=== PATIENT | male | born 1950 | race Caucasian/White ===

== ENCOUNTER 2018-08-05 07:17 | Outpatient (CLI) | payer BC, MEDICARE ==
--- NOTE | 2018-08-05 09:32 | CT ---
CT CHEST WITH IV CONTRAST CT ABDOMEN AND PELVIS WITH IV AND ORAL CONTRAST: Date: 08/05/18 HISTORY: Melanoma. Restaging. Abdominal wall mass. FINDINGS: At the posterolateral aspect of the left lower lobe, a 0.4 cm noncalcified subpleural nodule is now p resent, not evident on previous exams. No pleural fluid or pneumothorax. Nonenlarged, nonspecific lym ph nodes scattered about the mediastinum, measuring up to 1.3 cm. Prominent calcification within the coronary arteries. Gallbladder is surgically absent. Large and hyperdense renal cysts are stable. Calcifications within nondilated calices of each kidney are present, measuring up to 1.4 cm on the left, and 1.3 cm on the right. Urinary bladder is decompressed. Dystrophic calcification of the prostate gland. Diverticula arise fr om the colon without adjacent inflammation. At the left inguinal region, a superficial noncalcified subcutaneous mass measured 2.6 cm length x 2. 2 cm depth x 2.1 cm width. It shows peripheral enhancement with central irregular low density and sub tle surrounding fat stranding. There was subtle stranding in the fat at this location on the 2014 PET study without a mass evident. IMPRESSION: 1. New, complex, inflamed appearing mass at the left groin, measuring up to 2.6 cm. This may be in a n area of prior surgery based on the prior studies. While it could be a neoplastic process, the centr al low density and surrounding fat stranding have the appearance of inflammation. Clinical correlatio n regarding an inflammatory versus neoplastic process at the left groin is required. Imaging guidance for biopsy could be used if clinically indicated. 2. New 3 mm subpleural nodule in the lateral aspect of the left lower lobe. 3. Diverticulosis. No evidence of diverticulitis. 4. Nonobstructing large bilateral renal calculi. 5. Bilateral renal cysts are stable. 6. Atherosclerosis. POS: [facility]
[2018-08-05] MEDS ORDERED: Iopamidol 370 76% 100 ML VIAL ONE (10:34)
== END 2018-08-05 07:18 | disposition home or self-care (01) ==
LOC: CT 07:17
PROVIDERS: ATTEND Internal Medicine Hematology & Oncology
DX: C43.59 Malignant melanoma of other part of trunk (principal); R19.04 Left lower quadrant abdominal swelling, mass and lump; R91.1 Solitary pulmonary nodule; K57.90 Diverticulosis of intestine, part unspecified, without perforation or abscess without bleeding; N20.0 Calculus of kidney; N28.1 Cyst of kidney, acquired; I70.90 Unspecified atherosclerosis
CPT/HCPCS: 71260; 74177

== ENCOUNTER 2018-08-07 12:03 | Outpatient (CLI) | payer BC, MEDICARE ==
--- NOTE | 2018-08-07 16:23 | PET ---
CT ATTENUATION CORRECTION: 08/07/18 HISTORY: Malignant melanoma. COMPARISON: 01/08/15. CORRELATION: Chest, abdomen and pelvic CT 08/05/18. TECHNIQUE: PET scan with CT attenuation correction was performed from the base of the brain to the lower extremi ties following the intravenous administration of 10.9 millicuries of [id number]. FINDINGS: HEAD AND NECK: No abnormal FDG localization. CHEST: Normal abnormal FDG localization. The 3 mm nodular noted on recent CT is not hypermetabolic but is be low the imaging threshold criteria due to size. ABDOMEN AND PELVIS: No abnormal FDG localization. In the left inguinal region, there is a hypermetabolic focus correspond ing to recent CT finding with a maximum SUV of 8.5. OSSEOUS STRUCTURES: No abnormal FDG localization. LOWER EXTREMITIES: No abnormal FDG localization. IMPRESSION: Solitary hypermetabolic focus in the left inguinal region. POS: [facility]
== END 2018-08-07 12:04 | disposition home or self-care (01) ==
LOC: PET 12:03
PROVIDERS: ATTEND Internal Medicine Hematology & Oncology
DX: C43.9 Malignant melanoma of skin, unspecified (principal)
CPT/HCPCS: 78816; A9552

== ENCOUNTER 2018-08-13 10:16 | Outpatient (CLI) | payer BC, MEDICARE ==
[2018-08-13 11:26] LABS: #Basophils 0.1 thou/uL (0.0-0.2); #Eosinphils 0.5 thou/uL (0.0-0.7); #Lymphocytes 3.7 thou/uL (1.20-3.40); #Monocytes 0.9 thou/uL (0.11-0.59); #Neutrophils 5.8 thou/uL (1.40-6.50); %Basophils 1.1 % (0.0-1.0); %Eosinophils 4.2 % (0.0-10.0); %Lymphocytes 33.6 % (21.0-51.0); %Monocytes 7.9 % (0.0-10.0); %Neutrophils 53.2 % (42.0-75.0); Hemoglobin 15.1 g/dL (14.0-18.0); Mean Corpuscular HGB CONC 34.1 g/dL (32.0-36.0); Mean Corpuscular Hemoglobin 32.5 pg (27.0-31.0); Mean Corpuscular Volume 95.4 fL (78.0-98.0); Platelet Count 180 thou/uL (130-400); RBC Distribution Width 12.6 % (11.5-14.5); Red Blood Cell (RBC) Count 4.63 mill/uL (4.70-6.10); White Blood Cell (WBC) Count 10.9 thou/uL (4.8-10.8)
== END 2018-08-13 10:17 | disposition home or self-care (01) ==
LOC: LABBT 10:16
PROVIDERS: ATTEND Surgery
DX: Z01.818 Encounter for other preprocedural examination (principal); C43.59 Malignant melanoma of other part of trunk
CPT/HCPCS: 85025; 93005; 93010

== ENCOUNTER 2018-08-15 09:08 | Day surgery (SDC) | payer BC, MEDICARE ==
[2018-08-13 10:46] VITALS: BMI 27.2
[2018-08-15] MEDS ORDERED: CEFAZOLIN 2 GM/50 ML BAG ONE (10:27)
[2018-08-15] MEDS ORDERED: Lidocaine 2% PF 5 ML VIAL ONE (10:45)
[2018-08-15] MEDS ORDERED: Bupivacaine HCl 0.5%/Epinephrine 1:200,000/PF 30 ml Vial ONE (10:45)
[2018-08-15] MEDS ORDERED: Fentanyl 250 MCG/5 ML VIAL ONE (10:52)
[2018-08-15] MEDS ORDERED: Ondansetron PF 4 MG/2 ML Vial ONE (12:08)
[2018-08-15] MEDS ORDERED: Glycopyrrolate 0.2 MG/ML 5 ML SYRINGE ONE (12:08)
[2018-08-15] MEDS ORDERED: ePHEDrine/0.9% NaCl/PF SYRINGE 50 mg/10 ml ONE (12:08)
[2018-08-15] MEDS ORDERED: PROPOFOL 200 MG/20 ML VIAL ONE (12:08)
[2018-08-15] MEDS ORDERED: Lidocaine 1% PF 5 ML VIAL ONE (12:08)
[2018-08-15] MEDS ORDERED: Meperidine HCl/PF 25 MG/ML VIAL ONE (12:16)
--- NOTE | 2018-08-15 14:10 | OP ---
DATE OF PROCEDURE: 08/15/2018 PREOPERATIVE DIAGNOSIS: Metastatic melanoma, left groin. PROCEDURE PERFORMED: Excision of metastatic melanoma. INDICATIONS: This is a 68-year-old male, who about three years ago had a melanoma removed from his back. He had a sentinel node biopsy at that time was negative. He developed a nodule in his left groin that was positive on PET scan. FINDINGS: 3 x 3 cm nodule left groin, 5 x 5 cm area of tissue was removed. DESCRIPTION OF PROCEDURE: After informed consent was obtained, the patient was taken to the operating room and given general mask anesthesia, placed in the supine position. His groin was prepped and draped in usual fashion. Local anesthesia infiltrated subcutaneously and deep, and a transverse incision was performed in the skin. Subcu divided sharply, and the mass was excised with normal tissue circumferentially. It was marked with a black suture anterior, a blue suture superior, and a white suture lateral, sent to pathology for further analysis. Hemostasis achieved with electrocautery. A drain was placed and brought out through a separate stab wound. Then, the subcu was reapproximated with interrupted 3-0 Vicryl and the skin closed with a running subcuticular 4-0 Rapide. Dermabond applied. The patient tolerated the procedure well, transferred to Recovery in good condition. Sponge and needle count verified and correct x2. Job ID: [id number]
--- NOTE | 2018-08-20 05:02 | PQF ---
[facility] POST DISCHARGE CLINICAL DOCUMENTATION IMPROVEMENT CLARIFICATION FORM l Todays Date: 08/20/18 l Patients Name MILI WETZEL l l Admit Date 08/15/18 l Disch Date 08/15/18 Office Clin Asst Name Princess Jayla Graham Email: @[email or web address] Cell: [phone] To be completed by Office Clin Asst: Present Clinical Indicators - Signs / Symptoms Results and Location in Medical Record [ ] Documentation of: [ ] [ ] Documentation of: [ ] [ ] Documentation of: [ ] [ ] Documentation of: [ ] [ ] Risks [ ] [ ] [ ] Treatment [ ] EXCISION OF METASTATIC MELANOMA Physician query for margin of excised lesion [ ] [ ] To be completed by Physician: HUSSEIN HARLEY The documentation in this patients record requires clarification to ensure coding compliance and accuracy. Check the appropriate box and include in your discharge summary. [ ] [ ] [ ] [ ] Please check this box if this does not apply to this patient [ ] Unable to determine [ ] Other diagnosis: Review the following information and exercise your independent professional judgment in responding to the clarification. Based upon the clinical findings, risk factors, and treatment, please clarify if you are treating one of the above probable or suspected diagnoses. Physician Signature: Date Time MTDD
== END 2018-08-15 14:13 | disposition home or self-care (01) ==
LOC: SDC 09:08
PROVIDERS: ATTEND Surgery
PROC: 0HB9XZZ Excision of Perineum Skin, External Approach (ICD-10-PCS; principal; 2018-08-15)
PROC: 0HQ9XZZ Repair Perineum Skin, External Approach (ICD-10-PCS; principal; 2018-08-15)
DX: C43.59 Malignant melanoma of other part of trunk (principal); I10 Essential (primary) hypertension; M10.9 Gout, unspecified; Z87.442 Personal history of urinary calculi; Z87.891 Personal history of nicotine dependence; Z91.09 Other allergy status, other than to drugs and biological substances; Z79.82 Long term (current) use of aspirin; Z79.899 Other long term (current) drug therapy; Z98.890 Other specified postprocedural states
CPT/HCPCS: 88307; 88341; 88342; 88360; J0670; J2001; J2175; J2405; J2704; J3010

== ENCOUNTER 2018-08-26 14:44 | Outpatient (CLI) | payer BC, MEDICARE ==
[~2018-08-26 14:44] MED LIST: ISOVUE-370 76%-LOCM 1 ML ONE
--- NOTE | 2018-08-26 17:06 | CT ---
PRE AND POST CONTRAST ENHANCED CT IMAGES OF THE BRAIN: History: Melanoma. Comparison: 12-28-14 FINDINGS: Pre and post contrast enhanced CT images of the brain demonstrate no evidence of calvarial masses or lesions. No abnormal areas of intracranial enhancement is seen. No evidence of intracranial hemorrhag es, strokes or other intracranial abnormalities seen. IMPRESSION: Unremarkable pre and post contrast enhanced CT images of the brain. POS: [facility]
== END 2018-08-26 14:45 | disposition home or self-care (01) ==
LOC: BICCT 14:44
PROVIDERS: ATTEND Internal Medicine Hematology & Oncology
DX: C43.59 Malignant melanoma of other part of trunk (principal)
CPT/HCPCS: 70470

== ENCOUNTER 2018-10-30 08:13 | Outpatient (CLI) | payer BC, MEDICARE ==
--- NOTE | 2018-10-30 10:16 | PET ---
Exam: PET CT skull apex to the feet COMPARISON: 08/07/2018 HISTORY: History of left flank melanoma. TECHNIQUE: A PET/CT was performed from the apex of the skull through the feet after administration of 12.3 millicuries of F-18 FDG. Evaluation was performed on a [employer] workstation. FINDINGS: INTRACRANIAL: No areas of increased or decreased metabolic activity. NECK: There is streak artifact from dental amalgam adjacent to the right maxillary teeth. There is a focal area of hypermetabolic activity with a maximum SUV value of 12 adjacent to the dental amalgam. This persists on the nonattenuation corrected images and likely represents periodontal disease rather than metastatic disease. CHEST: No areas of hypermetabolic activity ABDOMEN/PELVIS: No areas of hypermetabolic activity SKELETON: No areas of hypermetabolic activity LOWER EXTREMITIES: No areas of hypermetabolic activity. The patient has a left knee prosthesis. CT images used for attenuation correction show no significant abnormality. IMPRESSION: No evidence of recurrent disease
== END 2018-10-30 08:14 | disposition home or self-care (01) ==
LOC: PET 08:13
PROVIDERS: ATTEND Internal Medicine Hematology & Oncology
DX: C43.9 Malignant melanoma of skin, unspecified (principal)
CPT/HCPCS: 78816; A9552

== ENCOUNTER 2019-02-04 07:50 | Outpatient (CLI) | payer BC, MEDICARE ==
--- NOTE | 2019-02-04 09:13 | CT ---
CT OF THE CHEST AND ABDOMEN WITH IV CONTRAST INDICATION: Melanoma COMPARISON: CT of the chest, abdomen and pelvis dated August 05, 2018 and a PET/CT dated January 08 FINDINGS: CHEST: Lungs:4 mm pulmonary nodule in the left lower lobe on image 39 series 3 is stable. The 4 mm subpleura l pulmonary nodule within the superior left lower lobe on image 16 of series 3 is stable. No new pulmonary nodule is identified. Heart and great vessels:Prominent coronary artery and thoracic aortic calcifications are stable there is a stable aortic valvular prosthesis Pleural space: No pneumothorax or effusion. Additional findings: The previously seen enlarged pretracheal lymph node is smaller now measuring 8. 6 mm where previously measured 1.3 cm. Subcarinal lymph node is also smaller now measuring 1.3 cm were previously measured 1.5 cm. The small paratracheal lymph nodes seen on the right are stable. Pos t-CABG change. Similar. ABDOMEN: Liver:Normal appearing. Spleen:Normal appearing. Pancreas:Normal appearing. Adrenal Glands:Normal appearing. Kidneys:Stable bilateral renal cysts and bilateral nephrolithiasis. One of the largest stones within the superior pole of the left kidney measures 1.6 cm. The largest on the right measures 1.2 cm. Aorta: Moderate vascular Additional findings: There is a retroaortic left renal vein. Bowel:The visualized small and large bowel appear within normal limits. Osseous structures: No acute osseous abnormality. There is scattered degenerative and osteoarthritic changes. IMPRESSION: 1. Stable left lower lobe 4 mm pulmonary nodules. No new pulmonary nodules identified. 2. Decrease in size of the enlarged mediastinal lymph nodes. 3. No evidence of metastatic disease within the abdomen. 4. Stable bilateral renal cysts and bilateral nephrolithiasis
[2019-02-04] MEDS ORDERED: ISOVUE-370 76%-LOCM 1 ML ONE (13:40)
== END 2019-02-04 07:51 | disposition home or self-care (01) ==
LOC: BICCT 07:50
PROVIDERS: ATTEND Internal Medicine Hematology & Oncology
DX: C43.59 Malignant melanoma of other part of trunk (principal); R91.8 Other nonspecific abnormal finding of lung field; R59.0 Localized enlarged lymph nodes; N28.1 Cyst of kidney, acquired; N20.0 Calculus of kidney
CPT/HCPCS: 36415; 71260; 74160; 80053; 85027; Q9966

== ENCOUNTER 2019-05-13 14:29 | Outpatient (CLI) | payer BC, MEDICARE ==
--- NOTE | 2019-05-13 15:28 | ULT ---
BILATERAL RENAL ULTRASOUND: HISTORY: Renal calculi. COMPARISON: None. FINDINGS: Right kidney: Normal cortical echotexture. Moderate hydronephrosis. A 0.7 cm echogenic focus in the l ower pole renal pelvis. A 3.3 x 3.0 x 3.3 cm anechoic focus compatible with a exophytic upper pole cyst. Right kidney measurements: A 10.2 x 7.7 x 6.6 cm. Left kidney: Normal cortical echotexture. No hydronephrosis exophytic 6.8 x 4.7 x 4.1 cm cyst. Adjace nt cortical calcification is identified. Small exophytic hypoechoic focus in the mid portion left kidney is incompletely evaluated. Left kidney measurements 12.6 x 6.2 x 5.1 cm. Urinary bladder: Normal mucosa. Bilateral ureteral jets are identified. Small left ureterocele is not ed. IMPRESSION: 1. Moderate right-sided hydronephrosis. 2. Bilateral nonobstructing intrarenal calculi. Transcribed Date/Time: 05/13/2019 3:39 PM
== END 2019-05-13 14:30 | disposition home or self-care (01) ==
LOC: BICULT 14:29
PROVIDERS: ATTEND Urology
DX: N20.0 Calculus of kidney (principal); N13.30 Unspecified hydronephrosis
CPT/HCPCS: 76770

== ENCOUNTER 2019-05-28 11:20 | Outpatient (CLI) | payer BC, MEDICARE ==
--- NOTE | 2019-05-28 13:15 | MRI ---
MRI thoracic spine with and without contrast: DATE: 05/28/2019 HISTORY: 68-year-old male with "malignant melanoma of other part of trunk ICD-10: C 43.59" Osseous metastatic lesion of lower thoracic spine found on CT of abdomen and pelvis of 05/25/2019 at [facility]. FINDINGS: There is diffusely abnormal T1 signal throughout the entire T9 vertebral body, which has heterogeneou s strong abnormal enhancement and heterogeneously hyperintense signal intensity on STIR sagittal sequence. There are shallow broad indentation's of the superior and inferior endplates. Overall loss of height is mild, on the order of 10-15% maximum centrally, with no significant loss of height at the periphery of the vertebral body. There is retropulsion of the tumor mass into the spinal canal, d ecreasing the AP dimension of the spinal canal by approximately 50%, indenting and posteriorly displacing the spinal cord, and causing moderate to severe central spinal canal stenosis. The neoplas tic process extends into the bilateral pedicles. There is mild signal abnormality in the prevertebral space both on the right and left centered at T9, and extending superiorly and inferiorly to the T8 and T10 levels. The rest of the vertebral body heights are not involved, and have normal height and signal. There is no definite cord edema and no syrinx. No other level of central spinal canal stenosis. Very small focal disc herniations: T3-4: Right paracentral, slightly indenting the spinal cord. T5-6: Central, slightly indenting spinal cord. T7-8: Tiny central. IMPRESSION: Metastatic lesion involving almost the entire T9 vertebral body, with tumor retropulsion into the spi nal canal, impinging on the spinal cord
[2019-05-28] MEDS ORDERED: Magnevist 469MG/ML 20 ML VIAL ONE (17:06)
== END 2019-05-28 11:21 | disposition home or self-care (01) ==
LOC: MRI 11:20
PROVIDERS: ATTEND Internal Medicine Hematology & Oncology
DX: C43.59 Malignant melanoma of other part of trunk (principal); R93.7 Abnormal findings on diagnostic imaging of other parts of musculoskeletal system; S24.113A Complete lesion at T7-T10 level of thoracic spinal cord, initial encounter; G95.20 Unspecified cord compression; M25.80 Other specified joint disorders, unspecified joint; C79.51 Secondary malignant neoplasm of bone
CPT/HCPCS: 72157; 82565; A9579

== ENCOUNTER 2019-06-02 08:36 | Outpatient (CLI) | payer BC, MEDICARE ==
--- NOTE | 2019-06-02 13:04 | NM ---
Whole-body bone scan: 06/02/2019 HISTORY: Prior imaging demonstrating a lesion at the T9 level concerning for metastatic disease TECHNIQUE: Anterior and posterior whole-body imaging obtained following the intravenous administratio n of 33 mCi technetium 99m labeled MDP FINDINGS: Physiologic activity within the kidneys and urinary bladder. There is a left knee prosthesi s. There is a focus of increased radiotracer activity at the T9 level concerning for a metastatic lesion. No additional spinal lesions are noted. No rib lesions, calvarial lesions, pelvic lesions, or long bone lesions. IMPRESSION: Focus of abnormal radiotracer activity at T9, concerning for malignancy when compared to prior cross-sectional imaging. No additional lesions are noted.
== END 2019-06-02 08:37 | disposition home or self-care (01) ==
LOC: NM 08:36
PROVIDERS: ATTEND Internal Medicine Hematology & Oncology
DX: S24.113A Complete lesion at T7-T10 level of thoracic spinal cord, initial encounter (principal); C43.59 Malignant melanoma of other part of trunk; G95.20 Unspecified cord compression; R92.8 Other abnormal and inconclusive findings on diagnostic imaging of breast
CPT/HCPCS: 78306; A9503

== ENCOUNTER 2019-07-09 18:59 | Inpatient (IN) | payer BC, MEDICARE ==
[2019-07-09 19:31] LABS: Bacteria/HPF 1+ HPF (None Seen); Bilirubin Negative (Negative); Blood, Urine 1+ (Negative); Clarity Clear (Clear); Glucose, Urine (Dipstick) Normal (Negative); Leukocyte Negative Leu/uL (Negative); Nitrite Negative (Negative); Protein, Urine (Dipstick) 30 mg/dL (Neg-Trace); Squamous Epithelial 0-3 HPF (0-3); Urobilinogen Normal mg/dL (Less than 2)
[2019-07-09 19:35] LABS: #Eosinphils 0.1 thou/uL (0.0-0.7); #Lymphocytes 1.3 thou/uL (1.20-3.40); #Neutrophils 13.8 thou/uL (1.40-6.50); %Basophils 0.1 % (0.0-1.0); %Eosinophils 0.3 % (0.0-10.0); %Lymphocytes 8.1 % (21.0-51.0); %Neutrophils 85.5 % (42.0-75.0); Hemoglobin 11.6 g/dL (14.0-18.0); Mean Corpuscular HGB CONC 34.9 g/dL (32.0-36.0); Mean Corpuscular Hemoglobin 33.5 pg (27.0-31.0); Mean Corpuscular Volume 95.9 fL (78.0-98.0); Mean Platelet Volume 7.4 fL (7.4-10.4); Platelet Count 175 thou/uL (130-400); RBC Distribution Width 12.5 % (11.5-14.5); Red Blood Cell (RBC) Count 3.45 mill/uL (4.70-6.10); White Blood Cell (WBC) Count 16.2 thou/uL (4.8-10.8)
--- NOTE | 2019-07-09 19:38 | RAD ---
Portable chest: HISTORY: Mental status change. Question pneumonia. History of malignancy. UTI. COMPARISON: 03/11/2017 FINDINGS: Lung hopkins are clear. Heart and mediastinum appear unremarkable. Postop sternotomy change Vascularity is normal. Old right clavicle fracture again noted IMPRESSION: No acute finding
[2019-07-09 19:40] LABS: Amphetamine Not Detected (NotDetected); Barbiturates Screen Not Detected (NotDetected); Benzodiazepine Screen Detected (NotDetected); Cocaine Metabolite Screen Not Detected (NotDetected); Medtox Control Line Valid? VALID (VALID); Medtox Reader # READER 4; Methadone Not Detected (NotDetected); Methamphetamine Not Detected (NotDetected); Opiate Screen Detected (NotDetected); Oxycodone Screen Not Detected (NotDetected); Phencyclidine (PCP) Not Detected (NotDetected); THC/Cannabinoid Screen Not Detected (NotDetected); Tricyclic Screen Not Detected (NotDetected)
[2019-07-09 19:56] LABS: ALT (SGPT) 17 U/L (8-55); AST (SGOT) 16 U/L (5-34); Acetaminophen Less than 6.0 mcg/mL (10.0-30.0); Albumin 3.7 g/dL (3.4-4.8); Alcohol Less than 10 mg/dL (Less than 10); Alkaline Phosphatase 130 U/L (40-110); Anion Gap 13 mmol/L (10-20); BUN (Urea Nitrogen) 38 mg/dL (8.4-25.7); Bilirubin, Total 0.5 mg/dL (0.2-1.2); Calc. Creatinine Clearance 0 mL/min (70-130); Calcium 9.8 mg/dL (7.8-10.44); Carbon Dioxide 29 mmol/L (23-31); Chloride 101 mmol/L (98-107); Estimated GFR-MDRD 59; Globulin 3.1 g/dL (2.4-3.5); Glucose 117 mg/dL (80-115); Lipase 35 U/L (8-78); Potassium 4.7 mmol/L (3.5-5.1); Protein, Total 6.8 g/dL (5.8-8.1); Salicylate Less than 8.0 mg/dL (15.0-30.0); Sodium 138 mmol/L (136-145)
--- NOTE | 2019-07-09 20:14 | CT ---
CT BRAIN WITHOUT CONTRAST: 07/09/19 HISTORY: Altered mental status. FINDINGS: There are changes of chronic small vessel ischemic disease. No evidence of acute infarct, hemorrhage, midline shift or abnormal extra-axial fluid collections are seen. The ventricular size is appropria te and the basilar cisterns patent. The bony calvarium is intact. There is a small amount of fluid in the left maxillary sinus indicative of acute sinusitis. IMPRESSION: 1. No CT evidence of acute intracranial process. 2. Left maxillary sinusitis. POS: [facility]
[2019-07-09 20:18] LABS: CKMB 2.2 ng/mL (0-6.6)
[2019-07-09] MEDS ORDERED: Aspirin Chewable 81 MG TAB ONE (20:21)
[2019-07-09] MEDS ORDERED: cefTRIAXone\\ROCEPHIN 2 GM VIAL ONE (22:12)
[2019-07-09] MEDS ORDERED: Acetaminophen 500 MG TAB ONE (22:12)
[2019-07-09] MEDS ORDERED: Senokot S 8.6-50 MG TAB PO PRN (22:35)
[2019-07-09] MEDS ORDERED: Acetaminophen 325 MG TAB PO PRN (22:35)
[2019-07-09] MEDS ORDERED: Nitroglycerin 0.4 MG TAB (25 Tab Bottle) SL PRN (22:35)
[2019-07-09 23:04] LABS: #Lymphocytes 1.3 thou/uL (1.20-3.40); #Monocytes 0.9 thou/uL (0.11-0.59); #Neutrophils 11.6 thou/uL (1.40-6.50); %Eosinophils 0.3 % (0.0-10.0); %Lymphocytes 9.4 % (21.0-51.0); %Monocytes 6.7 % (0.0-10.0); %Neutrophils 83.6 % (42.0-75.0); Mean Corpuscular HGB CONC 35.4 g/dL (32.0-36.0); Mean Corpuscular Hemoglobin 34.5 pg (27.0-31.0); Mean Corpuscular Volume 97.6 fL (78.0-98.0); Mean Platelet Volume 7.2 fL (7.4-10.4); Platelet Count 147 thou/uL (130-400); RBC Distribution Width 12.6 % (11.5-14.5); Red Blood Cell (RBC) Count 2.89 mill/uL (4.70-6.10); White Blood Cell (WBC) Count 13.8 thou/uL (4.8-10.8)
[2019-07-09 23:15] LABS: Anion Gap 10 mmol/L (10-20); BUN (Urea Nitrogen) 37 mg/dL (8.4-25.7); Calc. Creatinine Clearance 0 mL/min (70-130); Calcium 8.6 mg/dL (7.8-10.44); Carbon Dioxide 27 mmol/L (23-31); Chloride 106 mmol/L (98-107); Estimated GFR-MDRD 68; Glucose 112 mg/dL (80-115); Potassium 4.4 mmol/L (3.5-5.1); Sodium 139 mmol/L (136-145)
[2019-07-09] MEDS ORDERED: Morphine 4 MG/ML VIAL ONE (23:27)
--- NOTE | 2019-07-10 00:34 | HP ---
PRESENTING COMPLAINT: Confusion. HISTORY OF PRESENT ILLNESS: A 69-year-old male with history of recurrent melanoma with new vertebral metastasis, status post kyphoplasty for T9 vertebral metastasis two weeks ago, other history of hypertension, CAD, status post CABG. The patient was noted with increasing agitation and confusion since the last 3 days. These symptoms were initially managed with Xanax, which he was prescribed. Today, his symptoms continued to worsen. It was also associated with decreased p.o. intake as well as increasing weakness. He was seen by the primary yesterday. Urinalysis shows evidence of UTI. He was started on Cipro. He has received 3 doses but with no significant improvement, so he presented to the ED today. states no cough, shortness of breath, or chest pain. The patient was given IV fluid since arrival in the ED and the family reports that his mental status is improving. The patient is able to answer to some questions. He denies any headache or dizziness or chest pain, but admits to persistent back pain, worse with lying on the stretcher now. He denies any fever. He says he feels hungry and would like something to eat. PAST MEDICAL HISTORY: Significant for hypertension; CAD, status post CABG; history of melanoma initially excised, but with recurrence and bone metastasis. Recent MRI brain 1 month ago, with vertebral metastasis. Recent MRI brain, negative for intracranial metastasis. FAMILY HISTORY: Significant for CAD. SOCIAL HISTORY: The patient resides in the community with his spouse. No history of tobacco, alcohol, or illicit drug use. He is functional at baseline, but needs assistance with activities of daily living including medication management provided for by the . ALLERGIES: ADHESIVES. HOME MEDICATIONS: See full medication list. REVIEW OF SYSTEMS: Poor given patient's confusion but denies every other symptoms except for back pain. System review x10. PHYSICAL EXAMINATION: CURRENT VITAL SIGNS: Blood pressure of 155/74, respiratory rate of 18, O2 saturation 95% on room air, temperature afebrile, pulse of 76. GENERAL: Average built, elderly male, lying in bed, awake, conversant. HEAD: Atraumatic and normocephalic. Pupils are equal and reactive to light. NECK: No JVD. No carotid bruit. RESPIRATORY: Good air entry bilaterally. No crepitation. BACK: No area of erythema. Band-Aid over the lower lumbar area from recent nerve block. CARDIOVASCULAR: S1, S2. Sternotomy scar in-situ. ABDOMEN: Full, soft, nontender. No suprapubic fullness. EXTREMITIES: No calf tenderness. No pedal edema. NEUROLOGIC: The patient is awake, oriented to person and partially to place, but not to time. Moving extremities well. LABORATORY DATA: WBC 16.2, platelet 175, hemoglobin 11, potassium 4.7, creatinine 1.2. Troponin 0.046. Urinalysis shows 1+ blood, 4-6 rbc's and 4-6 wbc's with 1+ bacteria. Urine drug screen positive for benzo as well as opioids. Chest x-ray shows no acute infiltrate. Brain CT shows no acute hemorrhage or mass. IMPRESSION: 1. Metabolic encephalopathy. 2. Urinary tract infection, on treatment. 3. Hypertension. 4. History of coronary artery disease with mild elevated troponin. PLAN: We will admit the patient. We will monitor. We will start gentle IV fluid hydration. We will continue IV antibiotics. We will switch to Rocephin for now. Follow urine culture. We will start p.o. intake. We will do clear liquids for now and advance diet as tolerated. Expected mental status to continue to improve. We do p.r.n. Geodon as needed for agitation. Continue home med regimen. DVT prophylaxis with subcutaneous Lovenox. ADVANCED DIRECTIVES: The patient is a full code. Job ID: [id number]
[2019-07-10] MEDS: Sodium Chloride 0.9% 1,000 ML IV SCH ×2 (01:31→15:46)
[2019-07-10 05:56] LABS: Troponin I 0.067 ng/mL (< 0.028)
[2019-07-10] MEDS: Morphine 2 MG/ML SYRINGE SLOW IVP PRN (06:11)
[2019-07-10 06:21] LABS: Anion Gap 15 mmol/L (10-20); BUN (Urea Nitrogen) 34 mg/dL (8.4-25.7); Calc. Creatinine Clearance 72 mL/min (70-130); Carbon Dioxide 21 mmol/L (23-31); Chloride 108 mmol/L (98-107); Estimated GFR-MDRD 72; Glucose 96 mg/dL (80-115); Potassium 4.9 mmol/L (3.5-5.1); Sodium 139 mmol/L (136-145)
[2019-07-10] MEDS: Atenolol 25 MG TAB PO SCH (08:42)
[2019-07-10] MEDS: Atorvastatin Calcium 40 MG TAB PO SCH (08:43)
[2019-07-10] MEDS: Aspirin 81 mg Enteric Coated Tablet PO SCH (08:43)
[2019-07-10] MEDS: Lisinopril 10 MG TAB PO SCH (08:44)
[2019-07-10] MEDS: Escitalopram Oxalate 10 mg Tablet PO SCH (08:45)
[2019-07-10] MEDS: Famotidine 20 MG TAB PO SCH ×2 (08:45→21:50)
[2019-07-10] MEDS: Amlodipine 5 MG TAB PO SCH (08:46)
[2019-07-10] MEDS: Allopurinol 300 MG TAB PO SCH (08:46)
[2019-07-10] MEDS: Enoxaparin Sodium 30 MG/0.3 ML SYRINGE SC SCH (08:49)
[2019-07-10] MEDS: Ondansetron PF 4 MG/2 ML Vial IVP PRN (09:45)
[2019-07-10] MEDS ORDERED: Acetaminophen With Codeine [Tylenol With Codeine #4] PO PRN (10:00)
[2019-07-10] MEDS: Acetaminophen/Codeine 30-300mg Tablet PO PRN ×2 (10:53→18:37)
[2019-07-10 11:40] LABS: #Eosinphils 0.1 thou/uL (0.0-0.7); #Lymphocytes 1.4 thou/uL (1.20-3.40); #Monocytes 1.2 thou/uL (0.11-0.59); #Neutrophils 13.2 thou/uL (1.40-6.50); %Basophils 0.1 % (0.0-1.0); %Eosinophils 0.4 % (0.0-10.0); %Monocytes 7.3 % (0.0-10.0); %Neutrophils 83.2 % (42.0-75.0); Hemoglobin 10.9 g/dL (14.0-18.0); Mean Corpuscular HGB CONC 34.5 g/dL (32.0-36.0); Mean Corpuscular Hemoglobin 33.6 pg (27.0-31.0); Mean Corpuscular Volume 97.4 fL (78.0-98.0); Mean Platelet Volume 7.4 fL (7.4-10.4); Platelet Count 165 thou/uL (130-400); RBC Distribution Width 12.6 % (11.5-14.5); Red Blood Cell (RBC) Count 3.23 mill/uL (4.70-6.10); White Blood Cell (WBC) Count 15.8 thou/uL (4.8-10.8)
[2019-07-10] MEDS: Ziprasidone 20 MG VIAL IM PRN ×2 (11:41→19:31)
--- NOTE | 2019-07-10 12:25 | PDOC.HOSPP ---
- Subjective Encounter Date: 07/10/19 Encounter Time: 08:55 Subjective: pt up in bed eating his breakfast. Family at bedside who states he is back to his baseline. - Objective Vital Signs & Weight: Vital Signs (12 hours) Temp Pulse Resp BP BP BP BP 07/10/19 11:41 97.4 F L 70 16 97/64 07/10/19 10:23 155/90 H 149/84 H 07/10/19 08:46 97 153/89 H 07/10/19 08:44 153/59 H 07/10/19 08:42 97 153/59 H 07/10/19 08:40 07/10/19 07:47 98.4 F 97 16 153/89 H 07/10/19 04:00 97.9 F 84 18 160/98 H 07/10/19 00:32 Pulse Ox 07/10/19 11:41 96 07/10/19 10:23 07/10/19 08:46 07/10/19 08:44 07/10/19 08:42 07/10/19 08:40 95 07/10/19 07:47 95 07/10/19 04:00 96 07/10/19 00:32 97 Weight Weight 165 lb 9.6 oz I&O: 07/09/19 07/10/19 07/11/19 06:59 06:59 06:59 Intake Total 120 Balance 120 Result Diagrams: 07/10/19 11:28 07/10/19 04:50 Hospitalist ROS - Review of Systems Cardiovascular: denies: chest pain, palpitations, orthopnea, paroxysmal noc. dyspnea, edema, light headedness, other Gastrointestinal: denies: nausea, vomiting, abdominal pain, diarrhea, constipation, melena, hematochezia, other Genitourinary: denies: dysuria, frequency, incontinence, hematuria, retention, other - Medication Medications: Active Medications Generic Name Dose Route Start Last Admin Trade Name Freq PRN Reason Stop Dose Admin Acetaminophen 650 mg 07/09/19 22:35 07/10/19 05:27 Tylenol PO 650 mg Q4H PRN Administration Headache/Fever/Mild Pain (1-3) Acetaminophen/Codeine Phosphate 1 tab 07/10/19 10:05 07/10/19 10:53 Tylenol #3 PO 1 tab Q4H PRN Administration Moderate Pain (4-6) Allopurinol 300 mg 07/10/19 09:00 07/10/19 08:46 Zyloprim PO 300 mg DAILY ELLIE Administration Amlodipine Besylate 2.5 mg 07/10/19 09:00 07/10/19 08:46 Norvasc PO 2.5 mg DAILY ELLIE Administration Aspirin 81 mg 07/10/19 09:00 07/10/19 08:43 Ecotrin PO 81 mg DAILY ELLIE Administration Atenolol 25 mg 07/10/19 09:00 07/10/19 08:42 Tenormin PO 25 mg DAILY ELLIE Administration Atorvastatin Calcium 40 mg 07/10/19 09:00 07/10/19 08:43 Lipitor PO 40 mg DAILY ELLIE Administration Enoxaparin Sodium 30 mg 07/10/19 09:00 07/10/19 08:49 Lovenox SC 30 mg 0900 ELLIE Administration Escitalopram Oxalate 10 mg 07/10/19 09:00 07/10/19 08:45 Lexapro PO 10 mg DAILY ELLIE Administration Famotidine 20 mg 07/10/19 09:00 07/10/19 08:45 Pepcid PO 20 mg BID ELLIE Administration Sodium Chloride 1,000 mls @ 75 mls/hr 07/10/19 00:15 07/10/19 01:31 Normal Saline 0.9% IV 1,000 mls .[id number] ELLIE Administration Lisinopril 10 mg 07/10/19 09:00 07/10/19 08:44 Zestril PO 10 mg DAILY ELLIE Administration Morphine Sulfate 2 mg 07/09/19 22:35 07/10/19 06:11 Morphine SLOW IVP 2 mg Q4H PRN Administration Moderate to Severe Pain (6-10) Ondansetron HCl 4 mg 07/09/19 22:35 07/10/19 09:45 Zofran IVP 4 mg Q6H PRN Administration Nausea/Vomiting Ziprasidone 10 mg 07/09/19 22:37 07/10/19 11:41 Geodon IM 10 mg Q2H PRN Administration Agitation - Exam Neck: negative: supple, symmetric, no JVD, no thyromegaly, no lymphadenopathy, no carotid bruit, JVD Heart: negative: RRR, no murmur, no gallops, no rubs, normal peripheral pulses, irregular, diminshed peripheral pulses, murmur present, II/IV, III/IV Respiratory: negative: CTAB, no wheezes, no rales, no ronchi, normal chest expansion, no tachypnea, normal percussion, rales, rhonchi, tachypneic, wheezes Gastrointestinal: soft, non-tender, normal bowel sounds Neurological - other findings: 5/5 upper and lower ext strenght and sensation intact upper and lower. Psychiatric: normal behavior, A&O x 3 Hosp A/P (1) Acute metabolic encephalopathy Code(s): G93.41 - METABOLIC ENCEPHALOPATHY Status: Acute (2) UTI (urinary tract infection) Status: Acute (3) Melanoma Code(s): C43.9 - MALIGNANT MELANOMA OF SKIN, UNSPECIFIED Status: Acute (4) S/P kyphoplasty Code(s): Z98.890 - OTHER SPECIFIED POSTPROCEDURAL STATES Status: Acute (5) HTN (hypertension) Code(s): I10 - ESSENTIAL (PRIMARY) HYPERTENSION Status: Chronic - Plan s/p kyphoplasty done 1-2 weeks ago. He has been on cipro for 3 days. will get urine cx from his pain clinic physician. pt's pain has been managed with morphine and will add oral to see if he needs additional pain meds. Family wanted another MRI of this spine. will monitor him for now if his wbc worsen or he spikes a fever will get mri. pt is clinically improving.
[2019-07-10] MEDS: cefTRIAXone\\ROCEPHIN 1 GM in Sodium Chloride 0.9% 100 ML IVPB SCH (22:03)
[2019-07-11] MEDS: Acetaminophen/Codeine 30-300mg Tablet PO PRN ×4 (04:22→20:47)
[2019-07-11 04:35] LABS: #Eosinphils 0.1 thou/uL (0.0-0.7); #Lymphocytes 1.3 thou/uL (1.20-3.40); #Monocytes 0.9 thou/uL (0.11-0.59); #Neutrophils 8.4 thou/uL (1.40-6.50); %Basophils 0.1 % (0.0-1.0); %Eosinophils 0.7 % (0.0-10.0); %Lymphocytes 12.1 % (21.0-51.0); %Monocytes 8.5 % (0.0-10.0); %Neutrophils 78.5 % (42.0-75.0); Mean Corpuscular HGB CONC 34.6 g/dL (32.0-36.0); Mean Corpuscular Hemoglobin 33.6 pg (27.0-31.0); Mean Corpuscular Volume 96.9 fL (78.0-98.0); Mean Platelet Volume 7.7 fL (7.4-10.4); Platelet Count 155 thou/uL (130-400); RBC Distribution Width 12.9 % (11.5-14.5); Red Blood Cell (RBC) Count 2.99 mill/uL (4.70-6.10); White Blood Cell (WBC) Count 10.7 thou/uL (4.8-10.8)
[2019-07-11 05:02] LABS: Anion Gap 12 mmol/L (10-20); BUN (Urea Nitrogen) 23 mg/dL (8.4-25.7); Calc. Creatinine Clearance 89 mL/min (70-130); Calcium 8.9 mg/dL (7.8-10.44); Carbon Dioxide 21 mmol/L (23-31); Chloride 111 mmol/L (98-107); Estimated GFR-MDRD Greater than 90; Glucose 104 mg/dL (80-115); Potassium 3.8 mmol/L (3.5-5.1); Sodium 140 mmol/L (136-145)
[2019-07-11] MEDS: Sodium Chloride 0.9% 1,000 ML IV SCH (06:25)
[2019-07-11] MEDS: Ziprasidone 20 MG VIAL IM PRN (08:52)
[2019-07-11] MEDS: Aspirin 81 mg Enteric Coated Tablet PO SCH (08:53)
[2019-07-11] MEDS: Amlodipine 5 MG TAB PO SCH (08:53)
[2019-07-11] MEDS: Escitalopram Oxalate 10 mg Tablet PO SCH (08:53)
[2019-07-11] MEDS: Atenolol 25 MG TAB PO SCH (08:53)
[2019-07-11] MEDS: Famotidine 20 MG TAB PO SCH ×2 (08:54→20:48)
[2019-07-11] MEDS: Atorvastatin Calcium 40 MG TAB PO SCH (08:54)
[2019-07-11] MEDS: Enoxaparin Sodium 30 MG/0.3 ML SYRINGE SC SCH (08:55)
[2019-07-11] MEDS: Allopurinol 300 MG TAB PO SCH (08:55)
[2019-07-11] MEDS: Ondansetron PF 4 MG/2 ML Vial IVP PRN (09:02)
[2019-07-11] MEDS: Lisinopril 10 MG TAB PO SCH (09:57)
[2019-07-11] MEDS: ALPRAZolam 0.25 MG TAB PO PRN ×2 (12:16→20:48)
--- NOTE | 2019-07-11 13:58 | PDOC.HOSPP ---
- Subjective Encounter Date: 07/11/19 Encounter Time: 13:00 Subjective: pt up in bed drowsy but easily arousable. - Objective Vital Signs & Weight: Vital Signs (12 hours) Temp Pulse Resp BP BP Pulse Ox 07/11/19 11:50 98.0 F 74 24 H 160/101 H 93 L 07/11/19 09:57 135/90 07/11/19 08:53 101 H 135/90 07/11/19 08:00 95 07/11/19 07:41 97.8 F 101 H 16 135/90 95 07/11/19 04:00 97.9 F 87 16 148/94 H 96 Weight Admit Weight 165 lb 9.6 oz Weight 165 lb 9.6 oz I&O: 07/10/19 07/11/19 07/12/19 06:59 06:59 06:59 Intake Total 120 1267.5 240 Balance 120 1267.5 240 Result Diagrams: 07/11/19 04:17 07/11/19 04:17 Hospitalist ROS - Review of Systems Cardiovascular: denies: chest pain, palpitations, orthopnea, paroxysmal noc. dyspnea, edema, light headedness, other Gastrointestinal: denies: nausea, vomiting, abdominal pain, diarrhea, constipation, melena, hematochezia, other Genitourinary: denies: dysuria, frequency, incontinence, hematuria, retention, other - Medication Medications: Active Medications Generic Name Dose Route Start Last Admin Trade Name Freq PRN Reason Stop Dose Admin Acetaminophen 650 mg 07/09/19 22:35 07/10/19 05:27 Tylenol PO 650 mg Q4H PRN Administration Headache/Fever/Mild Pain (1-3) Acetaminophen/Codeine Phosphate 1 tab 07/10/19 10:05 07/11/19 12:16 Tylenol #3 PO 1 tab Q4H PRN Administration Moderate Pain (4-6) Allopurinol 300 mg 07/10/19 09:00 07/11/19 08:55 Zyloprim PO 300 mg DAILY ELLIE Administration Alprazolam 0.25 mg 07/10/19 17:58 07/11/19 12:16 Xanax PO 0.25 mg BIDPRN PRN Administration Anxiety Amlodipine Besylate 2.5 mg 07/10/19 09:00 07/11/19 08:53 Norvasc PO 2.5 mg DAILY ELLIE Administration Aspirin 81 mg 07/10/19 09:00 07/11/19 08:53 Ecotrin PO 81 mg DAILY ELLIE Administration Atenolol 25 mg 07/10/19 09:00 07/11/19 08:53 Tenormin PO 25 mg DAILY ELLIE Administration Atorvastatin Calcium 40 mg 07/10/19 09:00 07/11/19 08:54 Lipitor PO 40 mg DAILY ELLIE Administration Enoxaparin Sodium 30 mg 07/10/19 09:00 07/11/19 08:55 Lovenox SC 30 mg 0900 ELLIE Administration Escitalopram Oxalate 10 mg 07/10/19 09:00 07/11/19 08:53 Lexapro PO 10 mg DAILY ELLIE Administration Famotidine 20 mg 07/10/19 09:00 07/11/19 08:54 Pepcid PO 20 mg BID ELLIE Administration Ceftriaxone Sodium 1 gm/ 100 mls @ 200 mls/hr 07/10/19 22:00 07/10/19 22:03 Sodium Chloride IVPB 100 mls 2200 ELLIE Administration Lisinopril 10 mg 07/10/19 09:00 07/11/19 09:57 Zestril PO 10 mg DAILY ELLIE Administration Morphine Sulfate 2 mg 07/09/19 22:35 07/10/19 06:11 Morphine SLOW IVP 2 mg Q4H PRN Administration Moderate to Severe Pain (6-10) Ondansetron HCl 4 mg 07/09/19 22:35 07/11/19 09:02 Zofran IVP 4 mg Q6H PRN Administration Nausea/Vomiting - Exam Neck: negative: supple, symmetric, no JVD, no thyromegaly, no lymphadenopathy, no carotid bruit, JVD Heart: negative: RRR, no murmur, no gallops, no rubs, normal peripheral pulses, irregular, diminshed peripheral pulses, murmur present, II/IV, III/IV Respiratory: negative: CTAB, no wheezes, no rales, no ronchi, normal chest expansion, no tachypnea, normal percussion, rales, rhonchi, tachypneic, wheezes Gastrointestinal: negative: soft, non-tender, non-distended, normal bowel sounds , no palpable masses, no hepatomegaly, no splenomegaly, no bruit, no guarding, no rigidity, tender to palpation, distended, diminished bowl sounds, voluntary guarding Hosp A/P (1) Acute metabolic encephalopathy Code(s): G93.41 - METABOLIC ENCEPHALOPATHY Status: Acute (2) UTI (urinary tract infection) Status: Acute (3) Melanoma Code(s): C43.9 - MALIGNANT MELANOMA OF SKIN, UNSPECIFIED Status: Acute (4) S/P kyphoplasty Code(s): Z98.890 - OTHER SPECIFIED POSTPROCEDURAL STATES Status: Acute (5) HTN (hypertension) Code(s): I10 - ESSENTIAL (PRIMARY) HYPERTENSION Status: Chronic - Plan s/p kyphoplasty done 1-2 weeks ago. He has been on cipro for 3 days. will get urine cx from his pain clinic physician. pt's pain has been managed with morphine and will add oral to see if he needs additional pain meds. Family wanted another MRI of this spine. will monitor him for now if his wbc worsen or he spikes a fever will get mri. pt is clinically improving. 07/11 pt's wbc improving, he was agitated last night and was given geodon. He is now drowsy. cx so far are negative. Pending cx from Dr isbell's office where the original ua was collected. Per nursing staff pt's family wanted an MRI however pt currently has no pain and his wbc is increasing. He is able to ambulate not sure how much MRI will help.
--- NOTE | 2019-07-11 14:29 | PDOC.EVN ---
Event Note - Event Note Event Note: pt's family spoke with house wirer helper wanting a MRI brain and thoracic spine. pt was confused last night and was given geodon and xanax. He was drowsy but arousable when i went to see him. I believe MRI brain is reasonable given his hx. However MRI spine is currently not warranted given that his wbc is improving, his pain has been controlled and he has no neruo defects to his lower ext. Per nursing he have been getting up. I had explained to the family if there was a change ( upper or lower ext weakness, worsening pain or elevated wbc will get MRI spine).
[2019-07-11] MEDS ORDERED: Megestrol Acetate 40 MG TAB PO SCH (14:30)
[2019-07-11] MEDS ORDERED: Lorazepam 2 MG/ML VIAL SLOW IVP PRN (19:26)
[2019-07-11] MEDS: cefTRIAXone\\ROCEPHIN 1 GM in Sodium Chloride 0.9% 100 ML IVPB SCH (21:48)
[2019-07-12] MEDS: Morphine 2 MG/ML SYRINGE SLOW IVP PRN ×4 (04:58→22:29)
[2019-07-12 05:13] LABS: #Eosinphils 0.1 thou/uL (0.0-0.7); #Monocytes 1.4 thou/uL (0.11-0.59); #Neutrophils 12.3 thou/uL (1.40-6.50); %Basophils 0.1 % (0.0-1.0); %Eosinophils 0.7 % (0.0-10.0); %Lymphocytes 12.7 % (21.0-51.0); %Monocytes 8.9 % (0.0-10.0); %Neutrophils 77.6 % (42.0-75.0); Mean Corpuscular HGB CONC 35.1 g/dL (32.0-36.0); Mean Corpuscular Volume 96.9 fL (78.0-98.0); Mean Platelet Volume 7.6 fL (7.4-10.4); Platelet Count 166 thou/uL (130-400); RBC Distribution Width 12.8 % (11.5-14.5); Red Blood Cell (RBC) Count 3.23 mill/uL (4.70-6.10); White Blood Cell (WBC) Count 15.8 thou/uL (4.8-10.8)
[2019-07-12 05:31] LABS: Anion Gap 14 mmol/L (10-20); BUN (Urea Nitrogen) 21 mg/dL (8.4-25.7); Calc. Creatinine Clearance 85 mL/min (70-130); Calcium 9.7 mg/dL (7.8-10.44); Carbon Dioxide 24 mmol/L (23-31); Chloride 109 mmol/L (98-107); Estimated GFR-MDRD 88; Glucose 101 mg/dL (80-115); Potassium 3.8 mmol/L (3.5-5.1); Sodium 143 mmol/L (136-145)
[2019-07-12] MEDS: Lorazepam 2 MG/ML VIAL SLOW IVP PRN (11:34)
--- NOTE | 2019-07-12 11:38 | PDOC.HOSPP ---
- Subjective Encounter Date: 07/12/19 Encounter Time: 11:30 Subjective: f/u for metabolic encephalopathy with UTI tx with Rocephin. Nursing reports persistent agitation and needing sedation prior to scheduled MRI brain. - Objective Vital Signs & Weight: Vital Signs (12 hours) Temp Pulse Resp BP BP Pulse Ox 07/12/19 10:04 108/75 07/12/19 09:56 94 108/75 07/12/19 07:29 98.9 F 94 24 H 108/75 98 07/12/19 04:00 103 H 22 H 143/94 H 93 L 07/12/19 00:00 97.5 F L 91 18 96 Weight Admit Weight 165 lb 9.6 oz Weight 165 lb 9.6 oz I&O: 07/11/19 07/12/19 07/13/19 06:59 06:59 06:59 Intake Total 1267.5 565 Balance 1267.5 565 Result Diagrams: 07/12/19 05:02 07/12/19 05:02 Additional Labs: Microbiology 07/09/19 19:20 Urine voided Urine Culture - Final NO GROWTH AT 48 HOURS 07/09/19 22:06 Venous blood - Right Hand Blood Culture - Preliminary NO GROWTH AT 48 HOURS 07/09/19 22:01 Venous blood - Right Arm Blood Culture - Preliminary NO GROWTH AT 48 HOURS Laboratory Tests 07/09/19 07/09/19 07/09/19 19:20 19:24 22:47 WBC 16.2 H 13.8 H Hgb 11.6 L 10.0 L Urine Opiates Screen Detected H U Benzodiazepines Scrn Detected H 07/10/19 07/11/19 11:28 04:17 WBC 15.8 H 10.7 Hgb 10.9 L 10.0 L Urine Opiates Screen U Benzodiazepines Scrn Radiology Reviewed by me: Yes (CT brain - no acute infarct) EKG Reviewed by me: Yes (Tele - SR) Hospitalist ROS - Medication Medications: Active Medications Generic Name Dose Route Start Last Admin Trade Name Freq PRN Reason Stop Dose Admin Acetaminophen 650 mg 07/09/19 22:35 07/10/19 05:27 Tylenol PO 650 mg Q4H PRN Administration Headache/Fever/Mild Pain (1-3) Acetaminophen/Codeine Phosphate 1 tab 07/10/19 10:05 07/11/19 20:47 Tylenol #3 PO 1 tab Q4H PRN Administration Moderate Pain (4-6) Allopurinol 300 mg 07/10/19 09:00 07/12/19 09:56 Zyloprim PO 300 mg DAILY ELLIE Administration Alprazolam 0.25 mg 07/10/19 17:58 07/11/19 20:48 Xanax PO 0.25 mg BIDPRN PRN Administration Anxiety Amlodipine Besylate 2.5 mg 07/10/19 09:00 07/12/19 09:56 Norvasc PO 2.5 mg DAILY ELLIE Administration Aspirin 81 mg 07/10/19 09:00 07/12/19 09:56 Ecotrin PO 81 mg DAILY ELLIE Administration Atenolol 25 mg 07/10/19 09:00 07/12/19 09:56 Tenormin PO 25 mg DAILY ELLIE Administration Atorvastatin Calcium 40 mg 07/10/19 09:00 07/12/19 09:58 Lipitor PO 40 mg DAILY ELLIE Administration Enoxaparin Sodium 30 mg 07/10/19 09:00 07/12/19 09:58 Lovenox SC 30 mg 0900 ELLIE Administration Escitalopram Oxalate 10 mg 07/10/19 09:00 07/12/19 09:58 Lexapro PO 10 mg DAILY ELLIE Administration Famotidine 20 mg 07/10/19 09:00 07/12/19 09:56 Pepcid PO 20 mg BID ELLIE Administration Ceftriaxone Sodium 1 gm/ 100 mls @ 200 mls/hr 07/10/19 22:00 07/11/19 21:48 Sodium Chloride IVPB 100 mls 2200 ELLIE Administration Lisinopril 10 mg 07/10/19 09:00 07/12/19 10:04 Zestril PO 10 mg DAILY ELLIE Administration Lorazepam 1 mg 07/12/19 03:50 07/12/19 11:34 Ativan SLOW IVP 1 mg Q6H PRN Administration Anxiety/Agitation Megestrol Acetate 40 mg 07/12/19 09:00 07/12/19 09:58 Megace PO 40 mg DAILY ELLIE Administration Morphine Sulfate 2 mg 07/09/19 22:35 07/12/19 09:48 Morphine SLOW IVP 2 mg Q4H PRN Administration Moderate to Severe Pain (6-10) Ondansetron HCl 4 mg 07/09/19 22:35 07/11/19 09:02 Zofran IVP 4 mg Q6H PRN Administration Nausea/Vomiting Quetiapine Fumarate 50 mg 07/11/19 18:45 07/11/19 20:06 Seroquel PO Not Given 1844 ELLIE - Exam General - other findings: sleepy Eye: PERRL, anicteric sclera ENT: normocephalic atraumatic, no oropharyngeal lesions Neck: supple, symmetric, no JVD, no thyromegaly, no lymphadenopathy Heart: RRR, no murmur, no gallops, no rubs, normal peripheral pulses Respiratory: CTAB, no wheezes, no rales, no ronchi Gastrointestinal: soft, non-tender, non-distended, normal bowel sounds Extremities: no cyanosis, no clubbing, no edema Skin: normal turgor, no lesions Neurological: cranial nerve grossly intact Musculoskeletal: generalized weakness Psychiatric: oriented to person, somnolent Hosp A/P (1) Acute metabolic encephalopathy Code(s): G93.41 - METABOLIC ENCEPHALOPATHY Status: Acute Plan: Suspected due to UTI, continue supportive mgmt, MRI brain showing metastatic L frontal bone lesion new since 06/09 (2) UTI (urinary tract infection) Status: Acute Plan: Ucx negative to date, continue Rocephin IV, add Levaquin 750mg IV today (3) Melanoma Code(s): C43.9 - MALIGNANT MELANOMA OF SKIN, UNSPECIFIED Status: Chronic Plan: Apparent new L frontal bone metastasis by MRI brain, consult oncology service for recommendations given prior tx with Keytruda (4) HTN (hypertension) Code(s): I10 - ESSENTIAL (PRIMARY) HYPERTENSION Status: Chronic Qualifiers: Hypertension type: essential hypertension Qualified Code(s): I10 - Essential (primary) hypertension Plan: Stable, continue home BP regimen, serial monitoring - Plan plan discussed w/ family, continue antibiotics, PT/OT, social work 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
--- NOTE | 2019-07-12 12:43 | MRI ---
EXAM: MRI Brain W WO Con PROVIDED CLINICAL HISTORY: Altered mental status, history of melanoma COMPARISON: None FINDINGS: Evaluation is limited by patient motion. The ventricular system appears normal in size and morphology. Chronic microvascular ischemic changes are seen involving the cerebral white matter. There is no evidence for restricted diffusion to suggest recent infarction. There is no evidence for intracranial hemorrhage. There is a 9 mm focus of enhancement involving the left frontal skull which is somewhat endophytic ef facing the inner table. No definite additional abnormal contrast enhancement identified. Appropriate flow voids are seen within the major intracranial vessels. The extracranial soft tissues and calvarial marrow signal demonstrate an otherwise unremarkable MR appearance. IMPRESSION: 1. 9 mm enhancing mass within the left frontal skull, suspicious for metastatic lesion. 2. Chronic microvascular ischemic changes.
[2019-07-12] MEDS: Aspirin 81 mg Enteric Coated Tablet PO SCH (15:15)
[2019-07-12] MEDS: Megestrol Acetate 40 MG TAB PO SCH (15:15)
[2019-07-12] MEDS: Lisinopril 10 MG TAB PO SCH (15:15)
[2019-07-12] MEDS: Enoxaparin Sodium 30 MG/0.3 ML SYRINGE SC SCH (15:15)
[2019-07-12] MEDS: Allopurinol 300 MG TAB PO SCH (15:15)
[2019-07-12] MEDS: Famotidine 20 MG TAB PO SCH ×2 (15:15→22:46)
[2019-07-12] MEDS: Atenolol 25 MG TAB PO SCH (15:15)
[2019-07-12] MEDS: Escitalopram Oxalate 10 mg Tablet PO SCH (15:15)
[2019-07-12] MEDS: Atorvastatin Calcium 40 MG TAB PO SCH (15:15)
[2019-07-12] MEDS: Amlodipine 5 MG TAB PO SCH (15:15)
[2019-07-12] MEDS: cefTRIAXone\\ROCEPHIN 1 GM in Sodium Chloride 0.9% 100 ML IVPB SCH (22:41)
[2019-07-12] MEDS: Dextrose 5 % And 0.9 % NaCl 1,000 ML IV SCH (23:59)
[2019-07-13] MEDS: Lorazepam 2 MG/ML VIAL SLOW IVP PRN ×3 (01:27→18:55)
[2019-07-13] MEDS: Morphine 2 MG/ML SYRINGE SLOW IVP PRN ×2 (05:51→10:51)
[2019-07-13 06:02] LABS: Band 6 % (5-11); Hemoglobin 11.2 g/dL (14.0-18.0); Lymphocytes 13 % (21-51); MDiff Complete? YES; Mean Corpuscular HGB CONC 33.7 g/dL (32.0-36.0); Mean Corpuscular Hemoglobin 32.8 pg (27.0-31.0); Mean Corpuscular Volume 97.3 fL (78.0-98.0); Monocytes 10 % (0-10); Myelocyte 1 % (0-0); Neutrophil 70 % (42-75); Platelet Count 174 thou/uL (130-400); RBC Distribution Width 12.8 % (11.5-14.5); Red Blood Cell (RBC) Count 3.42 mill/uL (4.70-6.10); White Blood Cell (WBC) Count 12.1 thou/uL (4.8-10.8)
--- NOTE | 2019-07-13 11:39 | PDOC.HOSPP ---
- Subjective Encounter Date: 07/13/19 Encounter Time: 11:35 Subjective: f/u for AMS and metastatic melanoma with current chemotx with Keytruda. Remains sleepy/lethargic overnight and this am. Poor po intake over last 72h. Receiving Rocephin/Levaquin for suspected UTI. - Objective Vital Signs & Weight: Vital Signs (12 hours) Temp Pulse Resp BP Pulse Ox 07/13/19 07:35 98.4 F 103 H 16 140/88 97 07/13/19 03:30 98.3 F 107 H 20 172/103 H 97 Weight Admit Weight 165 lb 9.6 oz Weight 165 lb 9.6 oz I&O: 07/12/19 07/13/19 07/14/19 06:59 06:59 06:59 Intake Total 565 Output Total 200 Balance 565 -200 Result Diagrams: 07/13/19 04:53 07/12/19 05:02 Additional Labs: Microbiology 07/09/19 19:20 Urine voided Urine Culture - Final NO GROWTH AT 48 HOURS 07/09/19 22:06 Venous blood - Right Hand Blood Culture - Preliminary NO GROWTH AT 48 HOURS 07/09/19 22:01 Venous blood - Right Arm Blood Culture - Preliminary NO GROWTH AT 48 HOURS Laboratory Tests 07/09/19 07/09/19 07/09/19 19:20 19:24 22:47 WBC 16.2 H 13.8 H Hgb 11.6 L 10.0 L Neutrophils % Neutrophils % (Manual) Urine Opiates Screen Detected H U Benzodiazepines Scrn Detected H 07/10/19 07/11/19 07/12/19 11:28 04:17 05:02 WBC 15.8 H 10.7 15.8 H Hgb 10.9 L 10.0 L 11.0 L Neutrophils % 77.6 H Neutrophils % (Manual) Urine Opiates Screen U Benzodiazepines Scrn 07/13/19 04:53 WBC Hgb Neutrophils % Neutrophils % (Manual) 70 Urine Opiates Screen U Benzodiazepines Scrn Radiology Reviewed by me: Yes (MRI brain - L frontal skull mass concerning for mets) EKG Reviewed by me: Yes (Tele - N/A) Hospitalist ROS - Medication Medications: Active Medications Generic Name Dose Route Start Last Admin Trade Name Freq PRN Reason Stop Dose Admin Acetaminophen 650 mg 07/09/19 22:35 07/10/19 05:27 Tylenol PO 650 mg Q4H PRN Administration Headache/Fever/Mild Pain (1-3) Acetaminophen/Codeine Phosphate 1 tab 07/10/19 10:05 07/11/19 20:47 Tylenol #3 PO 1 tab Q4H PRN Administration Moderate Pain (4-6) Allopurinol 300 mg 07/10/19 09:00 07/12/19 15:15 Zyloprim PO 300 mg DAILY ELLIE Administration Alprazolam 0.25 mg 07/10/19 17:58 07/11/19 20:48 Xanax PO 0.25 mg BIDPRN PRN Administration Anxiety Amlodipine Besylate 2.5 mg 07/10/19 09:00 07/12/19 15:15 Norvasc PO 2.5 mg DAILY ELLIE Administration Aspirin 81 mg 07/10/19 09:00 07/12/19 15:15 Ecotrin PO 81 mg DAILY ELLIE Administration Atenolol 25 mg 07/10/19 09:00 07/12/19 15:15 Tenormin PO 25 mg DAILY ELLIE Administration Atorvastatin Calcium 40 mg 07/10/19 09:00 07/12/19 15:15 Lipitor PO 40 mg DAILY ELLIE Administration Enoxaparin Sodium 30 mg 07/10/19 09:00 07/12/19 15:15 Lovenox SC 30 mg 0900 ELLIE Administration Escitalopram Oxalate 10 mg 07/10/19 09:00 07/12/19 15:15 Lexapro PO 10 mg DAILY ELLIE Administration Famotidine 20 mg 07/10/19 09:00 07/12/19 22:46 Pepcid PO Not Given BID [facility] Ceftriaxone Sodium 1 gm/ 100 mls @ 200 mls/hr 07/10/19 22:00 07/12/19 22:41 Sodium Chloride IVPB 100 mls 2200 ELLIE Administration Dextrose/Sodium Chloride 1,000 mls @ 100 mls/hr 07/12/19 17:45 07/12/19 23:59 D5 0.9% Ns IV 1,000 mls .Q10H ELLIE Administration Levofloxacin 750 mg/ Device 150 mls @ 100 mls/hr 07/12/19 18:00 07/12/19 17: 58 IVPB 150 mls Q24HR ELLIE Administration Lisinopril 10 mg 07/10/19 09:00 07/12/19 15:15 Zestril PO 10 mg DAILY ELLIE Administration Lorazepam 1 mg 07/12/19 03:50 07/13/19 08:56 Ativan SLOW IVP 1 mg Q6H PRN Administration Anxiety/Agitation Megestrol Acetate 40 mg 07/12/19 09:00 07/12/19 15:15 Megace PO 40 mg DAILY ELLIE Administration Morphine Sulfate 2 mg 07/09/19 22:35 07/13/19 10:51 Morphine SLOW IVP 2 mg Q4H PRN Administration Moderate to Severe Pain (6-10) Ondansetron HCl 4 mg 07/09/19 22:35 07/11/19 09:02 Zofran IVP 4 mg Q6H PRN Administration Nausea/Vomiting Quetiapine Fumarate 50 mg 07/11/19 18:45 07/12/19 18:09 Seroquel PO 50 mg 1845 ELLIE Administration - Exam General - other findings: lethargic Eye: PERRL, anicteric sclera ENT: normocephalic atraumatic, no oropharyngeal lesions Neck: supple, symmetric, no JVD, no thyromegaly Heart: RRR, no gallops, no rubs, normal peripheral pulses Respiratory: CTAB, no wheezes, no rales, no ronchi, normal chest expansion Gastrointestinal: soft, non-tender, non-distended, normal bowel sounds Extremities: no cyanosis, no clubbing, no edema Skin: normal turgor, no lesions Neurological: cranial nerve grossly intact, no new deficit Musculoskeletal: generalized weakness Psychiatric: oriented to person, somnolent, lethargic Hosp A/P (1) Acute metabolic encephalopathy Code(s): G93.41 - METABOLIC ENCEPHALOPATHY Status: Acute Plan: Multifactorial, continue supportive mgmt, limit psychotropes and narcotics as clinically able (2) UTI (urinary tract infection) Status: Acute Plan: Suspected, continue Levaquin/Rocephin another 24h then de-escalate (3) Melanoma Code(s): C43.9 - MALIGNANT MELANOMA OF SKIN, UNSPECIFIED Status: Chronic Plan: Current chemotx with Keytruda, consult Med/Rad Oncology for evaluation and recommendations (4) Moderate protein-calorie malnutrition Code(s): E44.0 - MODERATE PROTEIN-CALORIE MALNUTRITION Status: Chronic Plan: Recommend TF's with Dobhoff placement given overall poor po intake (5) HTN (hypertension) Code(s): I10 - ESSENTIAL (PRIMARY) HYPERTENSION Status: Chronic Qualifiers: Hypertension type: essential hypertension Qualified Code(s): I10 - Essential (primary) hypertension - Plan plan discussed w/ family, continue antibiotics, PT/OT, 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
[2019-07-13] MEDS: Amlodipine 5 MG TAB PO SCH (12:25)
[2019-07-13] MEDS: Allopurinol 300 MG TAB PO SCH (12:25)
[2019-07-13] MEDS: Dextrose 5 % And 0.9 % NaCl 1,000 ML IV SCH ×2 (12:25→14:11)
[2019-07-13] MEDS: Escitalopram Oxalate 10 mg Tablet PO SCH (12:26)
[2019-07-13] MEDS: Lisinopril 10 MG TAB PO SCH (12:26)
[2019-07-13] MEDS: Atenolol 25 MG TAB PO SCH (12:26)
[2019-07-13] MEDS: Megestrol Acetate 40 MG TAB PO SCH (12:26)
[2019-07-13] MEDS: Atorvastatin Calcium 40 MG TAB PO SCH (12:26)
[2019-07-13] MEDS: Famotidine 20 MG TAB PO SCH ×2 (12:26→20:56)
[2019-07-13] MEDS: Enoxaparin Sodium 30 MG/0.3 ML SYRINGE SC SCH (12:26)
[2019-07-13] MEDS: Aspirin 81 mg Enteric Coated Tablet PO SCH (12:26)
[2019-07-13] MEDS: Meloxicam 15 MG TAB PO SCH (12:27)
[2019-07-13] MEDS: Morphine 2 MG/ML SYRINGE SLOW IVP SCH ×3 (13:18→20:57)
[2019-07-13] MEDS ORDERED: PROPOFOL 200 MG/20 ML VIAL ONE (13:26)
[2019-07-13] MEDS ORDERED: PHENYLEPHRINE-NS 100 MCG/ML 10 ML SYRINGE ONE (13:26)
[2019-07-13] MEDS ORDERED: Lidocaine 1% PF 5 ML VIAL ONE (13:26)
--- NOTE | 2019-07-13 17:00 | MRI ---
MRI LUMBAR SPINE WITH AND WITHOUT CONTRAST: HISTORY: Metastatic melanoma. COMPARISON: None FINDINGS: Small intrinsic T1 isointense, T2 and STIR hyperintense lesion along the left aspect of L1 which may represent a small hemangioma. There is an additional T1 hypointense, T2 hypointense lesion with STIR hyperintensity at the L2 level. Heterogeneous enhancement is suspected. At least two separate sm all foci of osseous metastases are suspected. There is appropriate signal intensity of the paraspinal muscles. T2 hyperintensities in the left and right renal cortex, compatible with cysts. Right cyst measures ap proximately 2.3 cm. Left cyst measures 4.7 cm. Bilateral parapelvic cysts are noted. Conus medullaris terminates at the mid L1 level. Postcontrast images demonstrate extensive thickening and stippling of the nerve roots compatible with multiple drop metastases. T12-L1: No significant central canal stenosis or significant neural foraminal narrowing. L1-L2: No significant posterior disc abnormality. No significant central canal stenosis. Mild bilater al neural foraminal narrowing. L2-L3: Broad-based disc bulge, ligament flavum thickening and facet hypertrophy result in mild centra l canal stenosis. Moderate right neural foraminal narrowing. Mild left neural foraminal narrowing. L3-L4: Disc desiccation without significant loss of disc space height. Broad-based disc bulge, ligame nt flavum thickening and facet hypertrophy result in mild central canal stenosis. Moderate right neural foraminal narrowing. Mild left neural foraminal narrowing due to disc material. L4-L5: Desiccation without significant loss of disc space height. No significant posterior disc abnor mality. No significant central canal stenosis. Moderate right and [id number] left neural foraminal narrowing. L5-S1: Adequate disc hydration. No significant loss of disc space height. There is a small left subar ticular disc protrusion which contacts the traversing left S1 nerve root, without significant obscuration. No significant stenosis of the thecal sac. Moderate to severe bilateral neural foraminal narrowing. IMPRESSION: 1. Findings suggesting osseous metastases involving the L1 and L3 vertebral bodies. No evidence of as sociated pathologic fracture. 2. Varying degrees of central canal stenosis and neural foraminal narrowing on the basis of degenerat antonio change. 3. Stippling of the cauda equina with enhancing nodularity suggesting multifocal drop metastases. Transcribed Date/Time: 07/13/2019 6:08 PM
--- NOTE | 2019-07-13 17:06 | MRI ---
MR THORACIC SPINE WITHOUT CONTRAST INDICATION: Melanoma COMPARISON: 05/28/2019 FINDINGS: Comparing to thoracic spine MRI, 05/28/2019, there has been interval low signal at the previously ment ioned T9 marrow lesion, likely relating to methylmethacrylate within pathologic compression deformity. There are no new discrete marrow lesions of the thoracic spine. There is redemonstration o f retropulsed bone at the compressed T9 segment, with associated mass effect upon the thoracic spinal cord. Degree of associated central canal stenosis at the T9 level has increased from prior exa m. IMPRESSION: Redemonstration of pathologic marrow signal related to metastatic disease at T9 with interval perform ance of vertebroplasty. Retropulsion of the pathologic compression is redemonstrated, with interval progression of central canal stenosis as a result.. Transcribed Date/Time: 07/13/2019 6:10 PM
--- NOTE | 2019-07-13 17:10 | MRI ---
MRI Cervical spine with and without contrast: HISTORY: Melanoma Findings: Multilevel moderate degenerative change throughout the cervical spine is demonstrated. There are scattered foci of reduced T1 marrow signal throughout the cervical spine, too small to defi nitively characterize. There is marrow edema involving the C7 vertebral body for which metastatic lesion is suspected. There is multilevel central canal and neural foraminal stenosis moderate in degr ee related to cervical spondylosis. Multilevel endplate marrow signal alteration related to degenerative change is present. IMPRESSION: Multifocal T1 marrow hypointensities of the cervical spine, many of which are too small to definitive ly characterize, although are suspicious for metastatic lesions in light of clinical history. There is a focal area of associated rounded marrow edema of C7 vertebral body suspicious for metastatic les ion. Continued imaging follow-up may prove useful. Transcribed Date/Time: 07/13/2019 6:03 PM
--- NOTE | 2019-07-13 21:12 | CON ---
DATE OF CONSULTATION: REASON FOR CONSULTATION: Melanoma. HISTORY OF PRESENT ILLNESS: Mr. Jenkins is a 69-year-old gentleman with stage IV melanoma. He recently completed radiation for a T9 vertebral body due to impending spinal cord compression. He has been taking Dabrafenib and Trametinib and doing well for many months. He has recently started on Keytruda for T-spine progression. He received one dose on June 26. He has had a kyphoplasty to this T9 vertebral metastasis. He presented to the emergency room on 07/09 with confusion. He was diagnosed with a UTI and started on Cipro. He has been on dexamethasone for several weeks. He underwent a brain MRI on the , which showed a 9 mm enhancing mass of the skull suspicious for a metastatic lesion. The patient was seen at bedside by Dr. Hillman. He is confused and requiring a sitter. PAST MEDICAL HISTORY: Melanoma, hyperlipidemia, hypertension, coronary artery disease, history of DC. PAST SURGICAL HISTORY: History of AV replacement. ALLERGIES: TO LATEX. HOME MEDICATIONS: 1. Tylenol. 2. Amlodipine. 3. Aspirin. 4. Tenormin. 5. Lipitor. 6. Lexapro. 7. Mobic. FAMILY HISTORY: Noncontributory. SOCIAL HISTORY: , has 3 children. Lives with his spouse. No alcohol, tobacco, or illicit drug use. REVIEW OF SYSTEMS: Unable to obtain secondary to altered mental status. PHYSICAL EXAMINATION: VITAL SIGNS: Temperature is 97.8, pulse is 98, respiratory rate 24, BP is 139/ 96. He is 95% on room air. GENERAL: Well-developed, well-nourished male. HEENT: Normocephalic, atraumatic. NECK: Supple. CV: Regular rate and rhythm. He does have a 1/6 systolic murmur. LUNGS: Clear. ABDOMEN: Soft. Bowel sounds are positive. EXTREMITIES: No clubbing or cyanosis. SKIN: No rash. NEUROLOGICAL: Unable to assess. PERTINENT LABORATORY DATA AND X-RAYS: Current WBCs 12.1, hemoglobin 11.2, hematocrit 33.3, platelet count is 174,000. Sodium is 143, potassium 3.8, chloride 109, CO2 is 24, BUN is 21, creatinine 0.86, calcium is 9.7, bilirubin is 0.5, AST 16, ALT is 17, alkaline phosphatase is 130. Serum total protein 6.8, albumin 3.7, globulin 3.1. Urine showed 1+ bacteria. ASSESSMENT: 1. Acute toxic metabolic encephalopathy. 2. Stage IV melanoma with new skull met. 3. UTI DISCUSSION: Case was discussed with Dr. Hillman and Dr. Iverson. This metastatic lesion is certainly not the cause for his altered mental status. It could be his UTI, although he is on antibiotics. He has been taking a significant amount of opioids over the last several weeks due to progression in back pain. He is due for an MRI later today and will require conscious sedation. If he does not improve soon, consider lumbar puncture. We will follow along with his hospital course. Thank you for the consult. Job ID: [id number] [facility]Cole
[2019-07-13] MEDS: cefTRIAXone\\ROCEPHIN 1 GM in Sodium Chloride 0.9% 100 ML IVPB SCH (22:01)
[2019-07-14] MEDS: Morphine 2 MG/ML SYRINGE SLOW IVP SCH ×6 (00:31→22:52)
[2019-07-14] MEDS: Lorazepam 2 MG/ML VIAL SLOW IVP PRN ×3 (01:34→18:38)
[2019-07-14] MEDS: Dextrose 5 % And 0.9 % NaCl 1,000 ML IV SCH ×2 (02:43→16:23)
[2019-07-14 06:32] LABS: Band 14 % (5-11); Hemoglobin 10.4 g/dL (14.0-18.0); Lymphocytes 6 % (21-51); MDiff Complete? YES; Mean Corpuscular HGB CONC 34.6 g/dL (32.0-36.0); Mean Corpuscular Hemoglobin 33.9 pg (27.0-31.0); Mean Corpuscular Volume 98.2 fL (78.0-98.0); Mean Platelet Volume 8.2 fL (7.4-10.4); Monocytes 10 % (0-10); Neutrophil 70 % (42-75); Platelet Count 162 thou/uL (130-400); RBC Distribution Width 13.2 % (11.5-14.5); Red Blood Cell (RBC) Count 3.07 mill/uL (4.70-6.10); White Blood Cell (WBC) Count 12.7 thou/uL (4.8-10.8)
[2019-07-14] MEDS: Allopurinol 300 MG TAB PO SCH (09:40)
[2019-07-14] MEDS: Amlodipine 5 MG TAB PO SCH (09:40)
[2019-07-14] MEDS: Atenolol 25 MG TAB PO SCH (09:41)
[2019-07-14] MEDS: Aspirin 81 mg Enteric Coated Tablet PO SCH (09:41)
[2019-07-14] MEDS: Atorvastatin Calcium 40 MG TAB PO SCH (09:42)
[2019-07-14] MEDS: Enoxaparin Sodium 30 MG/0.3 ML SYRINGE SC SCH (09:44)
[2019-07-14] MEDS: Escitalopram Oxalate 10 mg Tablet PO SCH (09:46)
[2019-07-14] MEDS: Famotidine 20 MG TAB PO SCH (09:47)
[2019-07-14] MEDS: Lisinopril 10 MG TAB PO SCH (09:48)
[2019-07-14] MEDS: Meloxicam 15 MG TAB PO SCH (09:48)
[2019-07-14] MEDS: Megestrol Acetate 40 MG TAB PO SCH (09:48)
--- NOTE | 2019-07-14 11:14 | CON ---
DATE OF CONSULTATION: 07/14/2019 REASON FOR CONSULTATION: Mr. Jenkins is a 69-year-old gentleman with metastatic melanoma, who I have recently treated with palliative radiation therapy to the spine. I was asked to see him today to discuss his options for treatment for possible bone metastasis. HISTORY OF PRESENT ILLNESS: Mr. Jenkins is known to me. He was diagnosed with melanoma in 2014. He declined adjuvant therapy at that time until about a year ago, he 1st developed a recurrence in the left inguinal region. He underwent surgery for this and then was treated by Dr. Hillman. In early May, he was found to have an area of bone metastasis involving the T9 vertebral body, which is causing him impending spinal cord compression. He was put on dexamethasone and treated with radiation therapy to the T7 through T11 vertebral bodies of 30 Gy in 10 fractions. This was completed in mid May. He had been on pain medication and was on steroids and tapered off the steroids slowly, for which he finished a steroid taper about 2 weeks ago. He apparently started Keytruda about a month ago with Dr. Hillman. About a month ago, he was having some mild occasional confusion, had an MRI of the brain, which was negative for brain metastasis. Apparently several weeks ago, he underwent a kyphoplasty of the T9 vertebral body over at [facility]. He has been reducing his pain medication. However, he has become more and more confused, especially in the last 2 weeks. He was unable to care for himself nor was his family able to care for him and he was subsequently brought to the emergency room, where he was admitted for workup of acute mental status changes. He was suspected to have urinary tract infection, was started on antibiotics. He was never febrile. His white count has been elevated, however. He while in the hospital has had minimal improvement. He did undergo an MRI of the brain, which was interpreted as a new 9-mm frontal bone metastasis. No obvious explanation for his mental status changes was present. I was asked to see him to discuss possible options. Yesterday, he underwent an MRI of the cervical, thoracic, and lumbar spine. This showed the T9 lesion still with some impingement on the spinal canal and spinal cord. There were several other areas consistent with metastasis. 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 I am seeing him today to discuss his options for treatment. He has been moving all extremities. The patient is unable to give a history at this time. I actually attempted to see the patient yesterday evening, but he was not in his room and I did this with the family at that time. He has not been having fever. His pain has been better. He had no other specific complaints. PAST MEDICAL HISTORY: 1. Melanoma as mentioned above. 2. Hypertension. 3. Hypercholesterolemia. 4. Coronary artery disease status post CABG x4 vessels. 5. GE reflux disease. 6. History of kidney stones. 7. History of aortic valve replacement. 8. Status post left total knee replacement. 9. Status post right ankle ORIF. MEDICATIONS: 1. Tylenol No. 3. 2. Xanax. 3. Norvasc. 4. Tenormin. 5. Lipitor. 6. Lovenox. 7. Lexapro. 8. Pepcid. 9. Levaquin. 10. Zestril. 11. Ativan. 12. Megace. 13. Morphine. 14. Seroquel. 15. Senokot-S. 16. Nitroglycerin p.r.n. ALLERGIES: ADHESIVE TAPE, LATEX, AND NATURAL RUBBER. HE HAS NO KNOWN MEDICINE ALLERGIES. SOCIAL HISTORY: He has no cigarette use. He used chewing tobacco up until the late 90s. He does drink occasional alcohol. He lives with his . FAMILY HISTORY: His mother at age 82 from an aortic aneurysm. His father at age 66 from heart disease. He has a sister with colon cancer and lymphoma, who is still living. There is no other family history of malignancy. REVIEW OF SYSTEMS: In discussing with family, review of systems is otherwise negative. PHYSICAL EXAMINATION: VITAL SIGNS: Height 5 feet 10 inches and weight 165 pounds. Blood pressure is 138/86, pulse is 96, respirations are 18, temperature is 98.8, and O2 saturation 96% on room air. GENERAL: He is very agitated and spends much of his time thrashing around in bed. He does open his eyes and answer to his name, but does not follow most commands or answer any questions. Karnofsky performance status is 30%. EYES: Pupils equal, round, and reactive to light. Extraocular movements appear intact. ENT: Oral cavity is without visible lesion. Gingiva is intact. NECK: Supple without preauricular, submandibular, cervical, or supraclavicular adenopathy. No thyromegaly. Larynx midline. LUNGS: Clear to auscultation. Breathing is nonlabored. HEART: Regular rate and rhythm without murmur. No lower extremity edema. LYMPHATIC: No axillary or inguinal adenopathy. ABDOMEN: Soft, nontender, and nondistended without mass or hepatosplenomegaly. Liver percusses to normal size. NEUROLOGIC: Again, he will follow some commands, but has difficulty cooperating and does not answer questions. Cranial nerves appear grossly intact. Motor strength appears normal in both upper and lower extremities. He is moving all extremities. Gait was not tested. RADIOLOGIC DATA: MRI of the brain from yesterday as well as MRI of the cervical, thoracic, and lumbar spine were all personally reviewed. MRI of the brain does not show parenchymal brain metastasis or thickening of the meninges. He possibly has a frontal bone metastasis. MRI of the spine shows several areas of bone metastasis. He has a lesion at the T9 vertebral body, causing retropulsion and impingement on the canal and spinal cord. 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 LABORATORY DATA: CBC today with a white blood count of 12,700 with a hemoglobin of 10.4, hematocrit of 30.2, and platelet count of 162,000. Chemistry group showed fairly normal-looking electrolytes. His chloride is mildly elevated at 109. Urine culture was negative as were blood cultures. ASSESSMENT: Mr. Jenkins is a 69-year-old gentleman with a history of metastatic melanoma to the bone, who now has acute mental status changes of unknown etiology. PLAN: The exact etiology of Mr. Jenkins's mental status changes are unknown. He does not appear to have brain metastasis and certainly the lesion in the frontal bone would not explain his mental status changes. He does not appear to have an acute infection and does not appear to have any electrolyte abnormalities, which would explain his mental status changes. His calcium is normal. The MRI of the lumbar spine is interesting. It would be unexpected that he would have drop metastasis, although certainly the MRI appearance is concerning for this. I think it would be unusual, although may be possible for him to develop spinal seeding after his kyphoplasty several weeks ago. The drop metastasis, if that is what these are, do not appear to be causing any symptoms. If he were to have meningeal carcinomatosis, then that would be an explanation for him having drop metastasis. Meningeal carcinomatosis could also explain his acute mental status changes. I think it would be reasonable to do a lumbar puncture for cytology and for culture and other tests to see if this would explain his mental status changes. Hopefully, if he does indeed have drop metastasis that the cytology would be positive and would confirm that. If he has meningeal carcinomatosis and drop metastasis from melanoma, then his prognosis is going to be extremely poor. Presently, the patient is very agitated and I am not sure that he can even safely undergo a lumbar puncture at the present time. He certainly would not be able to cooperate with any radiation therapy at the present time if we could prove that he has drop metastasis. I have discussed this with his hospitalist, Dr. Pratt. Dr. Pratt will evaluate the patient and will likely order a lumbar puncture when it is safe for the patient to undergo that. In the interim, I think it would be reasonable to restart his dexamethasone and also continue him on Pepcid for reflux symptoms from the dexamethasone. We can see if he gains any improvement from the dexamethasone in terms of his mental status. Hopefully, we will be able to find an etiology for his mental status changes. Hopefully, this will be something reversible. Again, if this is related to his malignancy, then his prognosis is going to be likely quite poor. Thank you for this interesting consultation. Job ID: [id number]
[2019-07-14] MEDS: Dexamethasone 4 mg/ml Vial IVPB SCH ×2 (12:15→17:29)
--- NOTE | 2019-07-14 13:09 | PDOC.HOSPP ---
- Subjective Encounter Date: 07/14/19 Encounter Time: 13:00 Subjective: f/u for encephalopathy, UTI, metastastic melanoma. reports persistent agitation and requirements for Morphine Sulfate IV on scheduled basis. Unable to pass Dobhoff tube due to resistance/agitation from pt. - Objective Vital Signs & Weight: Vital Signs (12 hours) Temp Pulse Resp BP Pulse Ox 07/14/19 11:36 98.4 F 99 24 H 147/102 H 97 07/14/19 09:41 96 07/14/19 09:40 96 07/14/19 08:00 98.8 F 96 18 138/86 96 07/14/19 03:52 98.5 F 100 14 143/94 H 94 L Weight Admit Weight 165 lb 9.6 oz Weight 165 lb 9.6 oz I&O: 07/13/19 07/14/19 07/15/19 06:59 06:59 06:59 Intake Total 550 868 Output Total 200 Balance -200 550 868 Result Diagrams: 07/14/19 04:30 07/12/19 05:02 Additional Labs: Microbiology 07/09/19 19:20 Urine voided Urine Culture - Final NO GROWTH AT 48 HOURS 07/09/19 22:06 Venous blood - Right Hand Blood Culture - Preliminary NO GROWTH AT 48 HOURS 07/09/19 22:01 Venous blood - Right Arm Blood Culture - Preliminary NO GROWTH AT 48 HOURS Laboratory Tests 07/09/19 07/09/19 07/09/19 19:20 19:24 22:47 WBC 16.2 H 13.8 H Hgb 11.6 L 10.0 L Neutrophils % Neutrophils % (Manual) Urine Opiates Screen Detected H U Benzodiazepines Scrn Detected H 07/10/19 07/11/19 07/12/19 11:28 04:17 05:02 WBC 15.8 H 10.7 15.8 H Hgb 10.9 L 10.0 L 11.0 L Neutrophils % 77.6 H Neutrophils % (Manual) Urine Opiates Screen U Benzodiazepines Scrn 07/13/19 04:53 WBC Hgb Neutrophils % Neutrophils % (Manual) 70 Urine Opiates Screen U Benzodiazepines Scrn Radiology Reviewed by me: Yes (MRI spine - T9 changes similar to previous, cauda equina stippling) Hospitalist ROS - Medication Medications: Active Medications Generic Name Dose Route Start Last Admin Trade Name Freq PRN Reason Stop Dose Admin Acetaminophen 650 mg 07/09/19 22:35 07/10/19 05:27 Tylenol PO 650 mg Q4H PRN Administration Headache/Fever/Mild Pain (1-3) Acetaminophen/Codeine Phosphate 1 tab 07/10/19 10:05 07/11/19 20:47 Tylenol #3 PO 1 tab Q4H PRN Administration Moderate Pain (4-6) Allopurinol 300 mg 07/10/19 09:00 07/14/19 09:40 Zyloprim PO Not Given DAILY [facility] Alprazolam 0.25 mg 07/10/19 17:58 07/11/19 20:48 Xanax PO 0.25 mg BIDPRN PRN Administration Anxiety Amlodipine Besylate 2.5 mg 07/10/19 09:00 07/14/19 09:40 Norvasc PO Not Given DAILY [facility] Aspirin 81 mg 07/10/19 09:00 07/14/19 09:41 Ecotrin PO Not Given DAILY [facility] Atenolol 25 mg 07/10/19 09:00 07/14/19 09:41 Tenormin PO Not Given DAILY [facility] Atorvastatin Calcium 40 mg 07/10/19 09:00 07/14/19 09:42 Lipitor PO Not Given DAILY [facility] Dexamethasone 4 mg 07/14/19 12:00 07/14/19 12:15 Decadron IVPB 4 mg Q6HR [facility] Administration Enoxaparin Sodium 30 mg 07/10/19 09:00 07/14/19 09:44 Lovenox SC Not Given 0900 [facility] Escitalopram Oxalate 10 mg 07/10/19 09:00 07/14/19 09:46 Lexapro PO Not Given DAILY [facility] Ceftriaxone Sodium 1 gm/ 100 mls @ 200 mls/hr 07/10/19 22:00 07/13/19 22:01 Sodium Chloride IVPB 100 mls 2200 ELLIE Administration Dextrose/Sodium Chloride 1,000 mls @ 100 mls/hr 07/12/19 17:45 07/14/19 02:43 D5 0.9% Ns IV 1,000 mls .Q10H ELLIE Administration Levofloxacin 750 mg/ Device 150 mls @ 100 mls/hr 07/12/19 18:00 07/13/19 18: 12 IVPB 150 mls Q24HR ELLIE Administration Lisinopril 10 mg 07/10/19 09:00 07/14/19 09:48 Zestril PO Not Given DAILY [facility] Lorazepam 1 mg 07/12/19 03:50 07/14/19 07:21 Ativan SLOW IVP 1 mg Q6H PRN Administration Anxiety/Agitation Megestrol Acetate 40 mg 07/12/19 09:00 07/14/19 09:48 Megace PO Not Given DAILY [facility] Meloxicam 15 mg 07/13/19 09:00 07/14/19 09:48 Mobic PO Not Given DAILY [facility] Morphine Sulfate 2 mg 07/13/19 12:30 07/14/19 12:13 Morphine SLOW IVP 2 mg Q4H ELLIE Administration Ondansetron HCl 4 mg 07/09/19 22:35 07/11/19 09:02 Zofran IVP 4 mg Q6H PRN Administration Nausea/Vomiting Quetiapine Fumarate 50 mg 07/11/19 18:45 07/13/19 19:30 Seroquel PO Not Given 184 [facility] - Exam General - other findings: somnolent, groggy Eye: PERRL, anicteric sclera ENT: normocephalic atraumatic, no oropharyngeal lesions Neck: supple, symmetric, no JVD, no thyromegaly Heart: RRR, no murmur, no gallops, no rubs, normal peripheral pulses Respiratory: CTAB, no wheezes, no rales, no ronchi Gastrointestinal: soft, non-tender, non-distended, normal bowel sounds Extremities: no cyanosis, no clubbing, no edema Skin: normal turgor, no lesions Musculoskeletal: generalized weakness Psychiatric: somnolent, lethargic Hosp A/P (1) Acute metabolic encephalopathy Code(s): G93.41 - METABOLIC ENCEPHALOPATHY Status: Acute Plan: Persistent, ? etiology but likely multifactorial, MRI spine showing cauda equina stippling concerning for drop metastases, LP scheduled for today to include cytology, continue supportive mgmt (2) UTI (urinary tract infection) Status: Acute Plan: Continue Rocephin/Levaquin (3) Melanoma Code(s): C43.9 - MALIGNANT MELANOMA OF SKIN, UNSPECIFIED Status: Chronic Plan: Metastatic process in spinal column and ? meningeal carcinomatosis (4) Moderate protein-calorie malnutrition Code(s): E44.0 - MODERATE PROTEIN-CALORIE MALNUTRITION Status: Chronic Plan: Dobhoff placement unsuccessful, will have Radiology place during LP procedure under sedation (5) HTN (hypertension) Code(s): I10 - ESSENTIAL (PRIMARY) HYPERTENSION Status: Chronic Qualifiers: Hypertension type: essential hypertension Qualified Code(s): I10 - Essential (primary) hypertension - Plan plan discussed w/ family, continue antibiotics, social media strategist, speech therapy , DVT proph w/SCDs Stable currently MRI C/T/L-spine showing drop metastases/ L1-L3 mets Continue home BP regimen Continue Rocephin/Levaquin Re-orientation techniques Ativan/Morphine sulfate IV Add D5NS @ 100ml/h Consult Med/Rad Oncology LP for cytology/cx Place Dobhoff FT while under sedation for LP AM lab: CBC
[2019-07-14] MEDS ORDERED: Midazolam HCl 2 mg/2 ml Vial ONE (13:56)
[2019-07-14] MEDS ORDERED: Meperidine HCl/PF 25 MG/ML VIAL ONE (13:56)
[2019-07-14] MEDS ORDERED: Ketamine 50 MG/ML (10ML VIAL) ONE (14:03)
[2019-07-14] MEDS ORDERED: Labetalol HCl 100 MG/20 ML VIAL ONE (15:28)
--- NOTE | 2019-07-14 15:36 | RAD ---
Fluoroscopic guided lumbar puncture HISTORY: Carcinomatosis. Meningitis. FINDINGS: Anesthesia was provided by the anesthesia department. Fluoroscopy time 0.5 minutes. The lower back was prepped and draped in usual sterile fashion. Sterile technique, buffered local ane sthesia, sedation provided by the anesthesia department, and a posterior L2-3 approach were used to carefully advance the tip of a 20-gauge spinal needle to the thecal sac. Initially, small amount of b lood was obtained. Needle was repositioned. A total volume of 8 cc blood-tinged CSF was collected and sent to laboratory for evaluation. Needle was removed. Patient tolerated the procedure well and w as left in the care of the anesthesia department. IMPRESSION: Technically successful fluoroscopic guided lumbar puncture.
[2019-07-14 15:37] LABS: CSF, Glucose 21 mg/dl (40-70)
--- NOTE | 2019-07-14 15:38 | RAD ---
Fluoroscopic guided Dobbhoff feeding tube placement and positioning HISTORY: Malnutrition. FINDINGS: After lumbar puncture that was performed separately, patient was placed supine. An 8 Urdu Dobbhoff feeding catheter was carefully placed into the stomach by anesthesia department personnel. Fluoroscopic guidance and careful manipulation then used to advance the metallic tip of the Dobbhoff feeding catheter into the second portion the duodenum. Fluoroscopy time 2.5 minutes. Patient tolerated the procedure well and was left in the care of the anesthesia department. IMPRESSION: Dobbhoff feeding catheter tip within the second portion the duodenum.
[2019-07-14 15:47] LABS: CSF Source CSF; Clarity Cloudy/Turbid (Clear); Tube # 4
[2019-07-14 16:15] LABS: CSF, Protein 676 mg/dL (15-40)
[2019-07-14 16:26] LABS: Cell Count Non Hematic 28 %; Lymphocytes 12 %; Segmented Neutrophils 60 %
--- NOTE | 2019-07-14 16:35 | PDOC.EVN ---
Event Note - Event Note Event Note: CSF samples showing potential evidence for infectious process. Start Vancomycin 1.25gm IV BID, Rocephin 2gm IV daily, await final CSF cx. Consult ID for any further recommendations.
[2019-07-14] MEDS ORDERED: Sodium Bicarbonate Tab 325 MG TAB PER TUBE PRN (16:49)
[2019-07-14] MEDS ORDERED: Pancrelipase DR 12000 1 CAP FS PRN (16:49)
[2019-07-14] MEDS: Vancomycin HCl 1.25 GM in Sodium Chloride 0.9% 250 ML 250 ML IVPB SCH (18:13)
[2019-07-14] MEDS ORDERED: cefTRIAXone\\ROCEPHIN 2 GM in Sodium Chloride 0.9% 100 ML IVPB SCH (19:00)
[2019-07-14] MEDS: Famotidine/PF 20 mg/2ml Vial SLOW IVP SCH (22:52)
[2019-07-15] MEDS: Dexamethasone 4 mg/ml Vial IVPB SCH ×5 (00:07→23:40)
[2019-07-15] MEDS: Morphine 2 MG/ML SYRINGE SLOW IVP SCH ×6 (00:09→21:52)
[2019-07-15] MEDS: Lorazepam 2 MG/ML VIAL SLOW IVP PRN ×3 (03:11→23:40)
[2019-07-15] MEDS: Vancomycin HCl 1.25 GM in Sodium Chloride 0.9% 250 ML 250 ML IVPB SCH (04:12)
[2019-07-15] MEDS: Dextrose 5 % And 0.9 % NaCl 1,000 ML IV SCH ×3 (04:13→23:40)
[2019-07-15] MEDS: Amlodipine 5 MG TAB PO SCH (10:52)
[2019-07-15] MEDS: Aspirin 81 mg Enteric Coated Tablet PO SCH (10:53)
[2019-07-15] MEDS: Allopurinol 300 MG TAB PO SCH (10:53)
[2019-07-15] MEDS: Enoxaparin Sodium 30 MG/0.3 ML SYRINGE SC SCH ×2 (11:02→11:57)
[2019-07-15] MEDS: Famotidine/PF 20 mg/2ml Vial SLOW IVP SCH ×2 (11:05→21:53)
[2019-07-15] MEDS ORDERED: Ziprasidone 20 MG VIAL IM SCH (11:30)
[2019-07-15] MEDS: Escitalopram Oxalate 10 mg Tablet PO SCH (11:59)
[2019-07-15] MEDS: Atorvastatin Calcium 40 MG TAB PO SCH (11:59)
[2019-07-15] MEDS: Atenolol 25 MG TAB PO SCH (12:00)
[2019-07-15] MEDS: Meloxicam 15 MG TAB PO SCH (12:01)
[2019-07-15] MEDS: Megestrol Acetate 40 MG TAB PO SCH (12:04)
[2019-07-15] MEDS: Lisinopril 10 MG TAB PO SCH (12:06)
--- NOTE | 2019-07-15 15:23 | PDOC.HOSPP ---
- Subjective Encounter Date: 07/15/19 Encounter Time: 15:10 Subjective: f/u for metastatic melanoma, ? meningeal carcinomatosis, AMS/UTI and ? meningitis. Receiving Rocephin/Vancomycin/Dexamethasone. More alert overall and took small amounts of food today. - Objective Vital Signs & Weight: Vital Signs (12 hours) Temp Pulse Resp BP Pulse Ox 07/15/19 11:50 98.1 F 97 18 158/98 H 97 07/15/19 10:52 97 07/15/19 08:16 97 07/15/19 08:00 98.4 F 97 18 144/85 H 97 Weight Admit Weight 165 lb 9.6 oz Weight 165 lb 9.6 oz I&O: 07/14/19 07/15/19 07/16/19 06:59 06:59 06:59 Intake Total 550 3345 Balance 550 3345 Result Diagrams: 07/14/19 04:30 07/12/19 05:02 Additional Labs: Microbiology 07/09/19 19:20 Urine voided Urine Culture - Final NO GROWTH AT 48 HOURS 07/09/19 22:06 Venous blood - Right Hand Blood Culture - Preliminary NO GROWTH AT 48 HOURS 07/09/19 22:01 Venous blood - Right Arm Blood Culture - Preliminary NO GROWTH AT 48 HOURS Laboratory Tests 07/09/19 07/09/19 07/09/19 19:20 19:24 22:47 WBC 16.2 H 13.8 H Hgb 11.6 L 10.0 L Neutrophils % Neutrophils % (Manual) Urine Opiates Screen Detected H U Benzodiazepines Scrn Detected H 07/10/19 07/11/19 07/12/19 11:28 04:17 05:02 WBC 15.8 H 10.7 15.8 H Hgb 10.9 L 10.0 L 11.0 L Neutrophils % 77.6 H Neutrophils % (Manual) Urine Opiates Screen U Benzodiazepines Scrn 07/13/19 04:53 WBC Hgb Neutrophils % Neutrophils % (Manual) 70 Urine Opiates Screen U Benzodiazepines Scrn EKG Reviewed by me: Yes (Tele - SR) Hospitalist ROS - Medication Medications: Active Medications Generic Name Dose Route Start Last Admin Trade Name Freq PRN Reason Stop Dose Admin Acetaminophen 650 mg 07/09/19 22:35 07/10/19 05:27 Tylenol PO 650 mg Q4H PRN Administration Headache/Fever/Mild Pain (1-3) Acetaminophen/Codeine Phosphate 1 tab 07/10/19 10:05 07/11/19 20:47 Tylenol #3 PO 1 tab Q4H PRN Administration Moderate Pain (4-6) Allopurinol 300 mg 07/10/19 09:00 07/15/19 10:53 Zyloprim PO 300 mg DAILY ELLIE Administration Alprazolam 0.25 mg 07/10/19 17:58 07/11/19 20:48 Xanax PO 0.25 mg BIDPRN PRN Administration Anxiety Amlodipine Besylate 2.5 mg 07/10/19 09:00 07/15/19 10:52 Norvasc PO 2.5 mg DAILY ELLIE Administration Aspirin 81 mg 07/10/19 09:00 07/15/19 10:53 Ecotrin PO 81 mg DAILY ELLIE Administration Atenolol 25 mg 07/10/19 09:00 07/15/19 12:00 Tenormin PO 25 mg DAILY ELLIE Administration Atorvastatin Calcium 40 mg 07/10/19 09:00 07/15/19 11:59 Lipitor PO 40 mg DAILY ELLIE Administration Dexamethasone 4 mg 07/14/19 12:00 07/15/19 12:18 Decadron IVPB 4 mg Q6HR ELLIE Administration Enoxaparin Sodium 30 mg 07/10/19 09:00 07/15/19 11:57 Lovenox SC 30 mg 0900 ELLIE Administration Escitalopram Oxalate 10 mg 07/10/19 09:00 07/15/19 11:59 Lexapro PO 10 mg DAILY ELLIE Administration Famotidine 20 mg 07/14/19 21:00 07/15/19 11:05 Pepcid SLOW IVP 20 mg BID ELLIE Administration Dextrose/Sodium Chloride 1,000 mls @ 100 mls/hr 07/12/19 17:45 07/15/19 04:13 D5 0.9% Ns IV 1,000 mls .Q10H ELLIE Administration Lisinopril 10 mg 07/10/19 09:00 07/15/19 12:06 Zestril PO 10 mg DAILY ELLIE Administration Lorazepam 1 mg 07/12/19 03:50 07/15/19 09:50 Ativan SLOW IVP 1 mg Q6H PRN Administration Anxiety/Agitation Megestrol Acetate 40 mg 07/12/19 09:00 07/15/19 12:04 Megace PO 40 mg DAILY ELLIE Administration Meloxicam 15 mg 07/13/19 09:00 07/15/19 12:01 Mobic PO 15 mg DAILY ELLIE Administration Morphine Sulfate 2 mg 07/13/19 12:30 07/15/19 12:17 Morphine SLOW IVP 2 mg Q4H ELLIE Administration Ondansetron HCl 4 mg 07/09/19 22:35 07/11/19 09:02 Zofran IVP 4 mg Q6H PRN Administration Nausea/Vomiting Quetiapine Fumarate 50 mg 07/11/19 18:45 07/14/19 18:32 Seroquel PO 50 mg 1845 ELLIE Administration - Exam General - other findings: answers questions briefly, mild agitation Eye: PERRL, anicteric sclera ENT: normocephalic atraumatic, no oropharyngeal lesions Neck: supple, symmetric, no JVD, no thyromegaly Heart: RRR, no gallops, no rubs, normal peripheral pulses Respiratory: CTAB, no wheezes, no rales, no ronchi, normal chest expansion Gastrointestinal: soft, non-tender, non-distended, normal bowel sounds Extremities: no cyanosis, no clubbing, no edema Skin: normal turgor, no lesions Musculoskeletal: normal tone, generalized weakness Psychiatric: oriented to person, oriented to place Hosp A/P (1) Acute metabolic encephalopathy Code(s): G93.41 - METABOLIC ENCEPHALOPATHY Status: Acute Plan: Mild improvement, multifactorial including potential for meningeal carcinomatosis, limit narcotics and sedation (2) UTI (urinary tract infection) Status: Acute Plan: Continue Rocephin (3) Melanoma Code(s): C43.9 - MALIGNANT MELANOMA OF SKIN, UNSPECIFIED Status: Chronic Plan: Med/Rad oncology following, await CSF cytology (4) Moderate protein-calorie malnutrition Code(s): E44.0 - MODERATE PROTEIN-CALORIE MALNUTRITION Status: Chronic Plan: Encourage increased po intake, Ensure/Might Shakes (5) HTN (hypertension) Code(s): I10 - ESSENTIAL (PRIMARY) HYPERTENSION Status: Chronic Qualifiers: Hypertension type: essential hypertension Qualified Code(s): I10 - Essential (primary) hypertension - Plan continue antibiotics, 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
--- NOTE | 2019-07-15 15:42 | CON ---
DATE OF CONSULTATION: 07/15/2019 REASON FOR CONSULTATION: Altered mental status, abnormal CSF findings. HISTORY OF PRESENT ILLNESS: A 69-year-old with history of melanoma with vertebral metastases status post kyphoplasty for T9 vertebral metastases 2 weeks before, also history of coronary artery disease and bypass graft surgery, who developed altered mental status 3 days before admission, which worsened after intake of Xanas. There was decreased oral intake. He was given Cipro for possible UTI, but continued to deteriorate and he was eventually admitted. Initial findings included respiratory rate 20, temperature 97.8, pulse 97, BP 150/100, and O2 saturation 96. He did not appear in distress. He seemed to be oriented to person and place on arrival. Other findings included white cell count 16.2, hemoglobin 11.6, and platelets 175 with 85% neutrophils. Sodium 138, creatinine 1.21, and glucose 117. Liver profile normal except for alkaline phosphatase of 130, which probably is of bone origin. Albumin is 3.7 and globulin 3.1. Urinalysis with 4-6 wbc's. Over the next few days, he had an an evaluation, which included thoracic, lumbar, and cervical spine MRI, which showed the areas of bone mets. The brain MRI which showed one area of bone mets in the frontal region left side and had a fluoroscopy-guided spinal tap. This demonstrated 9700 rbc's with 38 nucleated cells, the glucose was 21, and protein was 676. The serum glucose was 100. Currently, Mr. Jenkins is awake. He is a little bit confused. He knew that he was in [facility], established eye contact, and follow commands. He could not tell me the year. It was very hard for him to recall the recent events and give me an account of the sequence of events. Denies any headaches. No visual symptoms, sore throat, odynophagia, or dysphagia. No back pain. No dyspnea or chest pain. No abdominal pain or diarrhea. No genitourinary symptoms. He feels the need to void at the moment. PAST MEDICAL HISTORY: 1. Hypertension. 2. Coronary artery disease with bypass graft surgery. 3. Melanoma, excised, with bone mets now in the thoracic spine and in the left frontal region. FAMILY HISTORY: Coronary artery disease. SOCIAL HISTORY: He is retired. Never smoker. ALLERGIES: NO SIGNIFICANT MEDICATION ALLERGY REPORTED. CURRENT MEDICATIONS: 1. P.r.n. medications. 2. Zyloprim. 3. Xanax. 4. Norvasc. 5. Creon. 6. Ecotrin. 7. Tenormin. 8. Lipitor. 9. Ceftriaxone. 10. Decadron. 11. Lovenox. 12. Pepcid. 13. Zestril. 14. Nitroglycerin. 15. Vancomycin. PHYSICAL EXAMINATION: VITAL SIGNS: He has been afebrile through the hospital stay, BP 150/98, pulse 97, respirations 18, and O2 saturation 97. SKIN: Not remarkable. The patient is voiding in the diaper. No lymphadenopathy. HEENT: Ocular movements conjugate. Sclerae white. Oral cavity was normal. NECK: Supple. LUNGS: Symmetric, clear breath sounds. HEART: S1 and S2, regular rate without murmurs. ABDOMEN: Soft, not distended or tender. No ascites. No bladder distention. EXTREMITIES: No joint inflammatory activity. Moves extremities equally. No edema. Pulses are diminished in dorsalis pedis. Extremities are somewhat cool to touch. NEUROLOGIC: He is able to move all extremities equally. He knows his name and he could tell me after some effort that he was at [facility], but could not remember the year. His recall is quite limited, had difficulty finding words, but he did follow commands. LABORATORY DATA: The cultures thus far are negative, number of 2 sets of blood cultures, urine culture, and CSF cultures. ASSESSMENT: 1. Coronary artery disease with prior bypass graft surgery. 2. Melanoma, excised, now with bone metastasis in the spine and the skull. 3. Altered mental status. 4. Hypoglycorrhachia with elevated protein in CSF. DISCUSSION: The CSF is contaminated with blood during the procedure. The cell count is probably related to that event rather than primary inflammatory process in CSF, so I would recommend discontinuation of antimicrobial therapy. The hypoglycorrhachia though is of concern also as the elevated protein CSF in the face of metastatic malignancy, such as melanoma, which is notoriously associated with carcinomatous meningitis. The main concern is with that process. Awaiting on cytology of the CSF. Discontinue antimicrobials. Job ID: [id number]
[2019-07-16] MEDS: Morphine 2 MG/ML SYRINGE SLOW IVP SCH ×6 (01:04→22:20)
[2019-07-16] MEDS: Dexamethasone 4 mg/ml Vial IVPB SCH ×3 (05:20→17:56)
--- NOTE | 2019-07-16 08:22 | PDOC.MOPN ---
Interval History: confused, sedated - Vital Signs Vital Signs: Vital Signs (12 hours) Temp Pulse Resp BP BP Pulse Ox 07/16/19 08:00 97.9 F 93 16 167/107 H 98 07/16/19 04:00 97.5 F L 75 20 145/81 H 93 L 07/15/19 23:38 97.5 F L 96 20 165/96 H 95 Weight Admit Weight 165 lb 9.6 oz Weight 165 lb 9.6 oz - Physical Exam General: Other (sleeping, arousable to vouce, sitter at bedside) Lungs: Clear to auscultation Cardiovascular: Regular rate Psych/Mental Status: Other (somnolent) - Labs Result Diagrams: 07/14/19 04:30 07/12/19 05:02 A/P - Problem (1) Metastatic malignant melanoma Current Visit: Yes Code(s): C79.9 - SECONDARY MALIGNANT NEOPLASM OF UNSPECIFIED SITE Status: Acute (2) Acute metabolic encephalopathy Current Visit: Yes Code(s): G93.41 - METABOLIC ENCEPHALOPATHY Status: Acute (3) UTI (urinary tract infection) Current Visit: Yes Status: Acute (4) Melanoma Current Visit: Yes Code(s): C43.9 - MALIGNANT MELANOMA OF SKIN, UNSPECIFIED Status: Chronic - Plan Plan: 1. MRI ordered 2. review prior brain MRI 3. consider LP
--- NOTE | 2019-07-16 08:22 | PDOC.MOPN ---
Interval History: still confused but more alert on dexamethasone. eating a little bit - Vital Signs Vital Signs: Vital Signs (12 hours) Temp Pulse Resp BP BP Pulse Ox 07/16/19 08:00 97.9 F 93 16 167/107 H 98 07/16/19 04:00 97.5 F L 75 20 145/81 H 93 L 07/15/19 23:38 97.5 F L 96 20 165/96 H 95 Weight Admit Weight 165 lb 9.6 oz Weight 165 lb 9.6 oz - Physical Exam General: Other (disoriented to person, place, and time) HEENT: Atraumatic Lungs: Clear to auscultation Cardiovascular: Regular rate Abdomen: Normal bowel sounds Extremities: No clubbing, No edema Skin: No rashes Neurological: Other (he is somewhat slurred and his answers are not appropriate , he moces all extremities) - Labs Result Diagrams: 07/14/19 04:30 07/12/19 05:02 - Pathology Pathology: CSF shows + melanoma cells A/P - Problem (1) Metastatic malignant melanoma Current Visit: Yes Code(s): C79.9 - SECONDARY MALIGNANT NEOPLASM OF UNSPECIFIED SITE Status: Acute (2) Acute metabolic encephalopathy Current Visit: Yes Code(s): G93.41 - METABOLIC ENCEPHALOPATHY Status: Acute (3) UTI (urinary tract infection) Current Visit: Yes Status: Deleted (4) Melanoma Current Visit: Yes Code(s): C43.9 - MALIGNANT MELANOMA OF SKIN, UNSPECIFIED Status: Chronic - Plan Plan: 1. attempt to continue keytruda, he is due today for a q 3 w dose 2. palliative care consult 3. discuss with and family 4. d/c tele and transfer to oncology
[2019-07-16] MEDS: Atorvastatin Calcium 40 MG TAB PO SCH (09:33)
[2019-07-16] MEDS: Meloxicam 15 MG TAB PO SCH (09:33)
[2019-07-16] MEDS: Megestrol Acetate 40 MG TAB PO SCH (09:33)
[2019-07-16] MEDS: Aspirin 81 mg Enteric Coated Tablet PO SCH (09:33)
[2019-07-16] MEDS: Atenolol 25 MG TAB PO SCH (09:34)
[2019-07-16] MEDS: Lisinopril 10 MG TAB PO SCH (09:34)
[2019-07-16] MEDS: Allopurinol 300 MG TAB PO SCH (09:35)
[2019-07-16] MEDS: Amlodipine 5 MG TAB PO SCH (09:35)
[2019-07-16] MEDS: Escitalopram Oxalate 10 mg Tablet PO SCH (09:35)
[2019-07-16] MEDS: Famotidine/PF 20 mg/2ml Vial SLOW IVP SCH ×2 (09:36→22:21)
[2019-07-16] MEDS: Dextrose 5 % And 0.9 % NaCl 1,000 ML IV SCH ×2 (12:16→22:19)
[2019-07-16] MEDS ORDERED: Enoxaparin Sodium 30 MG/0.3 ML SYRINGE SC SCH (13:45)
--- NOTE | 2019-07-16 14:37 | PDOC.HOSPP ---
- Subjective Encounter Date: 07/16/19 Encounter Time: 14:35 Subjective: f/u for metastatic melanoma confirmed in CSF sample. AMS waxes and wanes. Tx for suspected UTI but no improvement in mentation. - Objective Vital Signs & Weight: Vital Signs (12 hours) Temp Pulse Resp BP BP Pulse Ox 07/16/19 11:49 97.7 F 89 16 121/87 98 07/16/19 09:35 80 167/107 H 07/16/19 09:34 80 167/107 H 07/16/19 08:00 97.9 F 93 16 167/107 H 98 07/16/19 04:00 97.5 F L 75 20 145/81 H 93 L Weight Admit Weight 165 lb 9.6 oz Weight 165 lb 9.6 oz I&O: 07/15/19 07/16/19 07/17/19 06:59 06:59 06:59 Intake Total 3345 1887 Balance 3345 1887 Result Diagrams: 07/14/19 04:30 07/12/19 05:02 Additional Labs: Microbiology 07/09/19 19:20 Urine voided Urine Culture - Final NO GROWTH AT 48 HOURS 07/09/19 22:06 Venous blood - Right Hand Blood Culture - Preliminary NO GROWTH AT 48 HOURS 07/09/19 22:01 Venous blood - Right Arm Blood Culture - Preliminary NO GROWTH AT 48 HOURS Laboratory Tests 07/09/19 07/09/19 07/09/19 19:20 19:24 22:47 WBC 16.2 H 13.8 H Hgb 11.6 L 10.0 L Neutrophils % Neutrophils % (Manual) Urine Opiates Screen Detected H U Benzodiazepines Scrn Detected H 07/10/19 07/11/19 07/12/19 11:28 04:17 05:02 WBC 15.8 H 10.7 15.8 H Hgb 10.9 L 10.0 L 11.0 L Neutrophils % 77.6 H Neutrophils % (Manual) Urine Opiates Screen U Benzodiazepines Scrn 07/13/19 04:53 WBC Hgb Neutrophils % Neutrophils % (Manual) 70 Urine Opiates Screen U Benzodiazepines Scrn Hospitalist ROS - Medication Medications: Active Medications Generic Name Dose Route Start Last Admin Trade Name Freq PRN Reason Stop Dose Admin Acetaminophen 650 mg 07/09/19 22:35 07/10/19 05:27 Tylenol PO 650 mg Q4H PRN Administration Headache/Fever/Mild Pain (1-3) Acetaminophen/Codeine Phosphate 1 tab 07/10/19 10:05 07/11/19 20:47 Tylenol #3 PO 1 tab Q4H PRN Administration Moderate Pain (4-6) Allopurinol 300 mg 07/10/19 09:00 07/16/19 09:35 Zyloprim PO 300 mg DAILY ELLIE Administration Alprazolam 0.25 mg 07/10/19 17:58 07/11/19 20:48 Xanax PO 0.25 mg BIDPRN PRN Administration Anxiety Amlodipine Besylate 2.5 mg 07/10/19 09:00 07/16/19 09:35 Norvasc PO 2.5 mg DAILY ELLIE Administration Aspirin 81 mg 07/10/19 09:00 07/16/19 09:33 Ecotrin PO 81 mg DAILY ELLIE Administration Atenolol 25 mg 07/10/19 09:00 07/16/19 09:34 Tenormin PO 25 mg DAILY ELLIE Administration Atorvastatin Calcium 40 mg 07/10/19 09:00 07/16/19 09:33 Lipitor PO 40 mg DAILY ELLIE Administration Dexamethasone 4 mg 07/14/19 12:00 07/16/19 11:14 Decadron IVPB 4 mg Q6HR ELLIE Administration Enoxaparin Sodium 30 mg 07/10/19 09:00 07/15/19 11:57 Lovenox SC 30 mg 0900 ELLIE Administration Enoxaparin Sodium 30 mg 07/16/19 13:45 07/16/19 13:41 Lovenox SC 07/16/19 15:45 30 mg NOW ELLIE Administration Escitalopram Oxalate 10 mg 07/10/19 09:00 07/16/19 09:35 Lexapro PO 10 mg DAILY ELLIE Administration Famotidine 20 mg 07/14/19 21:00 07/16/19 09:36 Pepcid SLOW IVP 20 mg BID ELLIE Administration Dextrose/Sodium Chloride 1,000 mls @ 100 mls/hr 07/12/19 17:45 07/16/19 12:16 D5 0.9% Ns IV 1,000 mls .Q10H ELLIE Administration Lisinopril 10 mg 07/10/19 09:00 07/16/19 09:34 Zestril PO 10 mg DAILY ELLIE Administration Lorazepam 1 mg 07/12/19 03:50 07/15/19 23:40 Ativan SLOW IVP 1 mg Q6H PRN Administration Anxiety/Agitation Megestrol Acetate 40 mg 07/12/19 09:00 07/16/19 09:33 Megace PO 40 mg DAILY ELLIE Administration Meloxicam 15 mg 07/13/19 09:00 07/16/19 09:33 Mobic PO 15 mg DAILY ELLIE Administration Morphine Sulfate 2 mg 07/13/19 12:30 07/16/19 12:16 Morphine SLOW IVP 2 mg Q4H ELLIE Administration Ondansetron HCl 4 mg 07/09/19 22:35 07/11/19 09:02 Zofran IVP 4 mg Q6H PRN Administration Nausea/Vomiting Quetiapine Fumarate 50 mg 07/11/19 18:45 07/15/19 18:28 Seroquel PO 50 mg 1845 ELLIE Administration - Exam General Appearance: awake alert Eye: PERRL, anicteric sclera ENT: normocephalic atraumatic, no oropharyngeal lesions Neck: supple, symmetric, no JVD, no thyromegaly Heart: RRR, no murmur, no gallops, no rubs, normal peripheral pulses Respiratory: CTAB, no wheezes, no rales, no ronchi Gastrointestinal: soft, non-tender, non-distended, normal bowel sounds Extremities: no cyanosis, no clubbing, no edema Skin: normal turgor Neurological - other findings: dysarthria - mild Musculoskeletal: normal tone, generalized weakness Psychiatric: oriented to person Hosp A/P (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 - SECONDARY MALIGNANT NEOPLASM OF OTH PARTS OF NERVOUS SYSTEM; C80.1 - MALIGNANT (PRIMARY) NEOPLASM, UNSPECIFIED Status: Acute Plan: CSF positive for melanoma confirming involvement and likely the underlying etiology for encephalopathy, Med oncology planning for Keytruda during the hospital stay, may need to consider hospice given this new finding (2) Acute metabolic encephalopathy Code(s): G93.41 - METABOLIC ENCEPHALOPATHY Status: Acute Plan: Persistent, likely due to #1, continue Decadron (3) Melanoma Code(s): C43.9 - MALIGNANT MELANOMA OF SKIN, UNSPECIFIED Status: Chronic Plan: Med/Rad oncology following, Keytruda planned (4) Moderate protein-calorie malnutrition Code(s): E44.0 - MODERATE PROTEIN-CALORIE MALNUTRITION Status: Chronic (5) HTN (hypertension) Code(s): I10 - ESSENTIAL (PRIMARY) HYPERTENSION Status: Chronic Qualifiers: Hypertension type: essential hypertension Qualified Code(s): I10 - Essential (primary) hypertension - Plan plan discussed w/ family, 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 Hillman will discuss with family/pt Keytruda gtt per Med oncology AM lab: CBC
[2019-07-16] MEDS: ALPRAZolam 0.25 MG TAB PO PRN (17:56)
[2019-07-17] MEDS: Morphine 2 MG/ML SYRINGE SLOW IVP SCH ×7 (00:39→23:50)
[2019-07-17] MEDS: Dexamethasone 4 mg/ml Vial IVPB SCH ×3 (00:40→12:04)
[2019-07-17] MEDS: ALPRAZolam 0.25 MG TAB PO PRN (02:40)
[2019-07-17] MEDS ORDERED: Pembrolizumab 200 MG in Sodium Chloride 0.9% 250 ML 250 ML IV SCH (08:15)
[2019-07-17] MEDS: Enoxaparin Sodium 30 MG/0.3 ML SYRINGE SC SCH (08:19)
[2019-07-17] MEDS: Aspirin 81 mg Enteric Coated Tablet PO SCH (08:20)
[2019-07-17] MEDS: Famotidine/PF 20 mg/2ml Vial SLOW IVP SCH ×2 (08:20→19:57)
[2019-07-17] MEDS: Escitalopram Oxalate 10 mg Tablet PO SCH (08:21)
[2019-07-17] MEDS: Lisinopril 10 MG TAB PO SCH (08:21)
[2019-07-17] MEDS: Amlodipine 5 MG TAB PO SCH (08:21)
[2019-07-17] MEDS: Atenolol 25 MG TAB PO SCH (08:21)
[2019-07-17] MEDS: Dextrose 5 % And 0.9 % NaCl 1,000 ML IV SCH ×2 (09:26→19:58)
[2019-07-17] MEDS: Megestrol Acetate 40 MG TAB PO SCH (09:54)
[2019-07-17] MEDS: Allopurinol 300 MG TAB PO SCH (09:55)
[2019-07-17] MEDS: Atorvastatin Calcium 40 MG TAB PO SCH (09:56)
[2019-07-17] MEDS: Meloxicam 15 MG TAB PO SCH (10:45)
--- NOTE | 2019-07-17 10:51 | PDOC.PALCO ---
Palliative Care Consult - Consult Details Requesting Physician: Dr Hillman Reason for Consult: goals of care, advance directives assistance, assistance with communication prognosis/disease, family support Family Members Present: Patient - Pertinent HPI 69 year old make with recurrent melanoma. Patient underwent a kyphoplasty at T9 secondary to metastatic disease aprox two weeks ago, three days prior to admission to the emergency room patient had experienced increase in confusion, agitation. The symptoms increased such that the called 911 for transfer to the hospital for further evaluation. Initially it was thought that the confusion was related to a UTI, however after management for infection no resolution was noted, CSF was obtained and confirmed metastatic melanoma. - Pertinent PMH Hypertension, CAD, History of CABG - Social History Smoking Status: Never smoker Smoking: no tobacco exposure Alcohol Use: none Drug Use History: none Living Situation: - Medications MAR Reviewed: Yes - Allergies Allergies/Adverse Reactions: Allergies Allergy/AdvReac Type Severity Reaction Status Date / Time adhesive Allergy Verified 08/13/18 10:38 Latex, Natural Rubber Allergy Verified 07/10/19 01:52 - Subjective Confused, nonverbal at todays assessment. Makes eye contact, shakes hand, but unable to converse. In adult brief with sitter at bedside secondary to confusion and intermittent agitation. - ROS Non Response: due to mental status - Objective Vital Signs: Vital Signs - Most Recent Temp Pulse Resp BP Pulse Ox 98.5 F 82 20 160/87 H 98 07/17/19 09:11 07/17/19 09:11 07/17/19 09:11 07/17/19 09:11 07/17/19 09:11 Palliative Performance Scale: 30 - Advance Directives Medical Power of Nursing Educator: Patient - Physical Exam Constitutional: confusion, encephalitic HEENT: EOMI, moist MMs, sclera anicteric Respiratory: clear to auscultation bilateral, no wheezing, unlabored breathing Cardiovascular: no significant murmur, RRR Gastrointestinal: non-tender, no distention, positive bowel sounds, incontinent Genitourinary: incontinent Musculoskeletal: no clubbing, no edema Neurology: moves all 4 limbs Skin: cap refill <2 seconds, no lesions Deviation from normal: Pallor Deviation from normal: Confused - Problem List (1) Palliative care encounter Code(s): Z51.5 - ENCOUNTER FOR PALLIATIVE CARE Current Visit: Yes Status: Acute (2) Acute metabolic encephalopathy Code(s): G93.41 - METABOLIC ENCEPHALOPATHY Current Visit: Yes Status: Acute (3) Metastatic malignant melanoma Code(s): C79.9 - SECONDARY MALIGNANT NEOPLASM OF UNSPECIFIED SITE Current Visit: Yes Status: Acute (4) S/P kyphoplasty Code(s): Z98.890 - OTHER SPECIFIED POSTPROCEDURAL STATES Current Visit: Yes Status: Acute - Plan/Recommendations Plan: Visited with patient at length. General life review, they have been for 57 years. They have three children and several grandchildren, two sons and a daughter (who is a nurse at [employer] in ) Mr Caballero passion is baseball and horses, one grandson is a pitcher at the [employer], the other is a freshman in [employer] and a catcher. states they never really discussed end of life issues or wishes. Discussed current melanoma with metastasis. Discussed resuscitation status. Mrs Jenkins does not want to make decisions without her children *Revisit resuscitation status *Possible family meeting Saturday or Saturday *define goals of care with new knowledge of CSF involvement and starting Keytruda *Pain currently managed today, will monitor *Communicated with Dr Hillman [90] minutes spent on this encounter with >50% of the time in counseling and coordination of care. Thank you for this very appropriate consult.
--- NOTE | 2019-07-17 11:21 | PDOC.HOSPP ---
- Subjective Encounter Date: 07/17/19 Encounter Time: 07:50 Subjective: Confused.. - Objective Vital Signs & Weight: Vital Signs (12 hours) Temp Pulse Resp BP BP BP Pulse Ox 07/17/19 10:56 98 07/17/19 09:11 98.5 F 82 20 160/87 H 98 07/17/19 08:21 70 128/82 07/17/19 07:55 97.8 F 71 18 128/82 99 07/17/19 04:00 98 F 70 18 155/106 H 97 07/17/19 00:00 98.3 F 69 16 126/100 H 98 Weight Admit Weight 165 lb 9.6 oz Weight 165 lb 9.6 oz I&O: 07/16/19 07/17/19 07/18/19 06:59 06:59 06:59 Intake Total 1887 2671 Output Total 100 Balance 1887 2571 Result Diagrams: 07/14/19 04:30 07/12/19 05:02 Hospitalist ROS - Medication Medications: Active Medications Generic Name Dose Route Start Last Admin Trade Name Freq PRN Reason Stop Dose Admin Acetaminophen 650 mg 07/09/19 22:35 07/10/19 05:27 Tylenol PO 650 mg Q4H PRN Administration Headache/Fever/Mild Pain (1-3) Acetaminophen/Codeine Phosphate 1 tab 07/10/19 10:05 07/11/19 20:47 Tylenol #3 PO 1 tab Q4H PRN Administration Moderate Pain (4-6) Allopurinol 300 mg 07/10/19 09:00 07/17/19 09:55 Zyloprim PO 300 mg DAILY ELLIE Administration Alprazolam 0.25 mg 07/10/19 17:58 07/17/19 02:40 Xanax PO 0.25 mg BIDPRN PRN Administration Anxiety Amlodipine Besylate 2.5 mg 07/10/19 09:00 07/17/19 08:21 Norvasc PO 2.5 mg DAILY ELLIE Administration Aspirin 81 mg 07/10/19 09:00 07/17/19 08:20 Ecotrin PO 81 mg DAILY ELLIE Administration Atenolol 25 mg 07/10/19 09:00 07/17/19 08:21 Tenormin PO 25 mg DAILY ELLIE Administration Atorvastatin Calcium 40 mg 07/10/19 09:00 07/17/19 09:56 Lipitor PO 40 mg DAILY ELLIE Administration Dexamethasone 4 mg 07/14/19 12:00 07/17/19 06:06 Decadron IVPB 4 mg Q6HR ELLIE Administration Enoxaparin Sodium 30 mg 07/10/19 09:00 07/17/19 08:19 Lovenox SC 30 mg 0900 ELLIE Administration Escitalopram Oxalate 10 mg 07/10/19 09:00 07/17/19 08:21 Lexapro PO 10 mg DAILY ELLIE Administration Famotidine 20 mg 07/14/19 21:00 07/17/19 08:20 Pepcid SLOW IVP 20 mg BID ELLIE Administration Dextrose/Sodium Chloride 1,000 mls @ 100 mls/hr 07/12/19 17:45 07/17/19 09:26 D5 0.9% Ns IV 1,000 mls .Q10H ELLIE Administration Lisinopril 10 mg 07/10/19 09:00 07/17/19 08:21 Zestril PO 10 mg DAILY ELLIE Administration Lorazepam 1 mg 07/12/19 03:50 07/15/19 23:40 Ativan SLOW IVP 1 mg Q6H PRN Administration Anxiety/Agitation Megestrol Acetate 40 mg 07/12/19 09:00 07/17/19 09:54 Megace PO 40 mg DAILY ELLIE Administration Meloxicam 15 mg 07/13/19 09:00 07/17/19 10:45 Mobic PO 15 mg DAILY ELLIE Administration Morphine Sulfate 2 mg 07/13/19 12:30 07/17/19 08:19 Morphine SLOW IVP 2 mg Q4H ELLIE Administration Ondansetron HCl 4 mg 07/09/19 22:35 07/11/19 09:02 Zofran IVP 4 mg Q6H PRN Administration Nausea/Vomiting Quetiapine Fumarate 50 mg 07/11/19 18:45 07/16/19 17:56 Seroquel PO 50 mg 1845 ELLIE Administration - Exam General Appearance: NAD Neck: no JVD Heart: RRR Respiratory: CTAB Gastrointestinal: soft Extremities: no edema Neurological: no weakness Hosp A/P (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 - SECONDARY MALIGNANT NEOPLASM OF OTH PARTS OF NERVOUS SYSTEM; C80.1 - MALIGNANT (PRIMARY) NEOPLASM, UNSPECIFIED Status: Acute (2) Metastatic malignant melanoma Code(s): C79.9 - SECONDARY MALIGNANT NEOPLASM OF UNSPECIFIED SITE Status: Acute (3) Melanoma Code(s): C43.9 - MALIGNANT MELANOMA OF SKIN, UNSPECIFIED Status: Chronic (4) Moderate protein-calorie malnutrition Code(s): E44.0 - MODERATE PROTEIN-CALORIE MALNUTRITION Status: Chronic (5) Cholecystitis Code(s): K81.9 - CHOLECYSTITIS, UNSPECIFIED Status: Acute (6) HTN (hypertension) Code(s): I10 - ESSENTIAL (PRIMARY) HYPERTENSION Status: Chronic Qualifiers: Hypertension type: essential hypertension Qualified Code(s): I10 - Essential (primary) hypertension - Plan Seen by Oncology and palliative ... Tansfer to oncology floor.
--- NOTE | 2019-07-17 14:43 | PDOC.MOPN ---
Interval History: confused. Agitated at times - Vital Signs Vital Signs: Vital Signs (12 hours) Temp Pulse Resp BP BP BP Pulse Ox 07/17/19 10:56 98 07/17/19 09:11 98.5 F 82 20 160/87 H 98 07/17/19 08:21 70 128/82 07/17/19 07:55 97.8 F 71 18 128/82 99 07/17/19 04:00 98 F 70 18 155/106 H 97 Weight Admit Weight 165 lb 9.6 oz Weight 165 lb - Physical Exam General: Mild distress HEENT: Atraumatic, PERRLA, EOMI, Mucous membr. moist/pink Lungs: Clear to auscultation, Normal air movement Cardiovascular: Regular rate, Normal S1, Normal S2, No murmurs, Gallops, Rubs Abdomen: Normal bowel sounds, Soft, No tenderness, No hepatospenomegaly, No masses Extremities: No clubbing, No cyanosis, No edema, Normal pulses, No tenderness/ swelling Skin: No rashes, No breakdown, No significant lesion Neurological: Other (mumbling) - Labs Result Diagrams: 07/14/19 04:30 07/12/19 05:02 Lab results: Laboratory Results - last 24 hr 07/14/19 14:47: Fluid Diff Path Review Status: lab reviewed by me A/P - Problem (1) Metastatic malignant melanoma Current Visit: Yes Code(s): C79.9 - SECONDARY MALIGNANT NEOPLASM OF UNSPECIFIED SITE Status: Acute - Plan Plan: Keytruda today Consider SNF next week Family meeting on Saturday Discussed code status and advanced directives.
[2019-07-17] MEDS: Lorazepam 2 MG/ML VIAL SLOW IVP PRN (14:57)
--- NOTE | 2019-07-17 17:25 | PRG ---
DATE OF SERVICE: 07/17/2019 SUBJECTIVE: Mr. Jenkins was very nonresponsive today when I visited with him. He grimaces some when talking to, but does not really open his eyes or respond to commands. There are no family at the bedside. OBJECTIVE: VITAL SIGNS: 5 feet and 10 inches, weight 165 pounds. Blood pressure 130/78, pulse is 68, respirations are 20, temperature is 98.5, and O2 saturation is 95% on room air. CONSTITUTIONAL: He again does not arouse. He is well-developed and well- nourished. Karnofsky performance status is 10%. NECK: Without adenopathy. LUNGS: With coarse breath sounds, but otherwise clear. Breathing is mildly labored. HEART: Regular rate and rhythm without murmur. NEUROLOGIC: Again, he does not follow commands. LABORATORY DATA: Cytology from the CSF shows metastatic melanoma. ASSESSMENT: Mr. 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 He is very nonresponsive today when I visited with him. PLAN: He appears to be having a rapidly fatal process. He really has never been treatable from a radiation perspective. Given that he has meningeal carcinomatosis from metastatic melanoma, the prognosis was quite poor to begin with. Dr. Hillman is considering whether to give him Keytruda. She has visited with the family. Apparently, there is a family meeting planned for Saturday. I think his most appropriate treatment is hospice care. I do not think radiation has anything to offer him in terms of improvement at this time. Should his status change, I can reconsider. Job ID: [id number] MTDD
[2019-07-17] MEDS: Dexamethasone 4 mg/ml Vial SLOW IVP SCH (19:58)
[2019-07-18] MEDS: Morphine 2 MG/ML SYRINGE SLOW IVP SCH ×5 (04:33→20:47)
[2019-07-18] MEDS: Dextrose 5 % And 0.9 % NaCl 1,000 ML IV SCH ×2 (04:33→15:18)
[2019-07-18] MEDS: Lorazepam 2 MG/ML VIAL SLOW IVP PRN (06:22)
[2019-07-18] MEDS: Famotidine/PF 20 mg/2ml Vial SLOW IVP SCH ×2 (08:52→20:48)
[2019-07-18] MEDS: Dexamethasone 4 mg/ml Vial SLOW IVP SCH ×2 (08:52→20:49)
[2019-07-18] MEDS: Amlodipine 5 MG TAB PO SCH (09:59)
[2019-07-18] MEDS: Escitalopram Oxalate 10 mg Tablet PO SCH (09:59)
[2019-07-18] MEDS: Aspirin 81 mg Enteric Coated Tablet PO SCH (09:59)
[2019-07-18] MEDS: Allopurinol 300 MG TAB PO SCH (09:59)
[2019-07-18] MEDS: Atenolol 25 MG TAB PO SCH (10:01)
[2019-07-18] MEDS: Lisinopril 10 MG TAB PO SCH (10:02)
[2019-07-18] MEDS: Megestrol Acetate 40 MG TAB PO SCH (10:02)
[2019-07-18] MEDS: Atorvastatin Calcium 40 MG TAB PO SCH (10:02)
[2019-07-18] MEDS: Enoxaparin Sodium 30 MG/0.3 ML SYRINGE SC SCH (10:14)
--- NOTE | 2019-07-18 11:29 | PDOC.HOSPP ---
- Subjective Encounter Date: 07/18/19 Encounter Time: 07:30 Subjective: Alert, confused.. - Objective Vital Signs & Weight: Vital Signs (12 hours) Temp Pulse Resp BP BP BP Pulse Ox 07/18/19 10:02 189/104 H 07/18/19 10:01 78 189/104 H 07/18/19 09:59 78 189/104 H 07/18/19 09:15 98.5 F 78 16 189/104 H 96 07/18/19 04:00 97.9 F 88 18 167/88 H 100 07/18/19 00:00 98.4 F 86 18 166/96 H 97 Weight Admit Weight 165 lb 9.6 oz Weight 165 lb I&O: 07/17/19 07/18/19 07/19/19 06:59 06:59 06:59 Intake Total 2671 1290 Output Total 100 Balance 2571 1290 Result Diagrams: 07/14/19 04:30 07/12/19 05:02 Hospitalist ROS - Medication Medications: Active Medications Generic Name Dose Route Start Last Admin Trade Name Freq PRN Reason Stop Dose Admin Acetaminophen 650 mg 07/09/19 22:35 07/10/19 05:27 Tylenol PO 650 mg Q4H PRN Administration Headache/Fever/Mild Pain (1-3) Acetaminophen/Codeine Phosphate 1 tab 07/10/19 10:05 07/11/19 20:47 Tylenol #3 PO 1 tab Q4H PRN Administration Moderate Pain (4-6) Allopurinol 300 mg 07/10/19 09:00 07/18/19 09:59 Zyloprim PO 300 mg DAILY ELLIE Administration Alprazolam 0.25 mg 07/10/19 17:58 07/17/19 02:40 Xanax PO 0.25 mg BIDPRN PRN Administration Anxiety Amlodipine Besylate 2.5 mg 07/10/19 09:00 07/18/19 09:59 Norvasc PO 2.5 mg DAILY ELLIE Administration Aspirin 81 mg 07/10/19 09:00 07/18/19 09:59 Ecotrin PO 81 mg DAILY ELLIE Administration Atenolol 25 mg 07/10/19 09:00 07/18/19 10:01 Tenormin PO 25 mg DAILY ELLIE Administration Atorvastatin Calcium 40 mg 07/10/19 09:00 07/18/19 10:02 Lipitor PO 40 mg DAILY ELLIE Administration Dexamethasone 4 mg 07/17/19 21:00 07/18/19 08:52 Decadron SLOW IVP 4 mg BID ELLIE Administration Enoxaparin Sodium 30 mg 07/10/19 09:00 07/18/19 10:14 Lovenox SC 30 mg 0900 ELLIE Administration Escitalopram Oxalate 10 mg 07/10/19 09:00 07/18/19 09:59 Lexapro PO 10 mg DAILY ELLIE Administration Famotidine 20 mg 07/14/19 21:00 07/18/19 08:52 Pepcid SLOW IVP 20 mg BID ELLIE Administration Dextrose/Sodium Chloride 1,000 mls @ 100 mls/hr 07/12/19 17:45 07/18/19 04:33 D5 0.9% Ns IV 1,000 mls .Q10H ELLIE Administration Miscellaneous Medication 200 258 mls @ 0 mls/hr 07/17/19 08:15 07/17/19 14:07 mg/ Sodium Chloride IV 258 mls WILLCALL ELLIE Administration As Directed Lisinopril 10 mg 07/10/19 09:00 07/18/19 10:02 Zestril PO 10 mg DAILY ELLIE Administration Lorazepam 1 mg 07/12/19 03:50 07/18/19 06:22 Ativan SLOW IVP 1 mg Q6H PRN Administration Anxiety/Agitation Megestrol Acetate 40 mg 07/12/19 09:00 07/18/19 10:02 Megace PO 40 mg DAILY ELLIE Administration Meloxicam 15 mg 07/13/19 09:00 07/17/19 10:45 Mobic PO 15 mg DAILY ELLIE Administration Morphine Sulfate 2 mg 07/13/19 12:30 07/18/19 08:47 Morphine SLOW IVP 2 mg Q4H ELLIE Administration Ondansetron HCl 4 mg 07/09/19 22:35 07/11/19 09:02 Zofran IVP 4 mg Q6H PRN Administration Nausea/Vomiting Quetiapine Fumarate 50 mg 07/11/19 18:45 07/17/19 18:43 Seroquel PO 50 mg 1845 ELLIE Administration - Exam General Appearance: NAD Neck: no JVD Heart: RRR Respiratory: CTAB Gastrointestinal: soft Extremities: no edema Neurological: no weakness Hosp A/P (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 - SECONDARY MALIGNANT NEOPLASM OF OTH PARTS OF NERVOUS SYSTEM; C80.1 - MALIGNANT (PRIMARY) NEOPLASM, UNSPECIFIED Status: Acute (2) Metastatic malignant melanoma Code(s): C79.9 - SECONDARY MALIGNANT NEOPLASM OF UNSPECIFIED SITE Status: Acute (3) Melanoma Code(s): C43.9 - MALIGNANT MELANOMA OF SKIN, UNSPECIFIED Status: Chronic (4) Moderate protein-calorie malnutrition Code(s): E44.0 - MODERATE PROTEIN-CALORIE MALNUTRITION Status: Chronic (5) Cholecystitis Code(s): K81.9 - CHOLECYSTITIS, UNSPECIFIED Status: Acute (6) HTN (hypertension) Code(s): I10 - ESSENTIAL (PRIMARY) HYPERTENSION Status: Chronic Qualifiers: Hypertension type: essential hypertension Qualified Code(s): I10 - Essential (primary) hypertension - Plan Seen by Oncology and palliative ... Received Keytruda yesterday. Continue current management.. Seen by palliative care. For possible SNF placement..
[2019-07-18] MEDS: Meloxicam 15 MG TAB PO SCH (11:33)
[2019-07-19] MEDS: Morphine 2 MG/ML SYRINGE SLOW IVP SCH ×7 (00:07→23:45)
[2019-07-19] MEDS: Dextrose 5 % And 0.9 % NaCl 1,000 ML IV SCH ×3 (01:05→21:14)
[2019-07-19] MEDS: Enoxaparin Sodium 30 MG/0.3 ML SYRINGE SC SCH (08:24)
[2019-07-19] MEDS: Atorvastatin Calcium 40 MG TAB PO SCH ×2 (08:26→12:05)
[2019-07-19] MEDS: Dexamethasone 4 mg/ml Vial SLOW IVP SCH ×2 (08:26→21:08)
[2019-07-19] MEDS: Lisinopril 10 MG TAB PO SCH ×2 (08:26→12:05)
[2019-07-19] MEDS: Atenolol 25 MG TAB PO SCH ×2 (08:26→12:04)
[2019-07-19] MEDS: Escitalopram Oxalate 10 mg Tablet PO SCH ×2 (08:26→12:05)
[2019-07-19] MEDS: Famotidine/PF 20 mg/2ml Vial SLOW IVP SCH ×2 (08:26→21:08)
[2019-07-19] MEDS: Aspirin 81 mg Enteric Coated Tablet PO SCH ×2 (08:26→12:04)
[2019-07-19] MEDS: Meloxicam 15 MG TAB PO SCH ×2 (08:26→12:06)
[2019-07-19] MEDS: Megestrol Acetate 40 MG TAB PO SCH ×2 (08:26→12:06)
[2019-07-19] MEDS: Amlodipine 5 MG TAB PO SCH ×2 (08:28→12:04)
[2019-07-19] MEDS: Allopurinol 300 MG TAB PO SCH ×2 (08:28→12:04)
--- NOTE | 2019-07-19 10:21 | PDOC.HOSPP ---
- Subjective Encounter Date: 07/19/19 Encounter Time: 08:35 Subjective: Alert, confused.. - Objective Vital Signs & Weight: Vital Signs (12 hours) Temp Pulse Resp BP BP Pulse Ox 07/19/19 08:28 95 07/19/19 08:26 95 189/104 H 07/19/19 07:20 98.9 F 95 18 184/108 H 95 07/19/19 03:47 98.0 F 80 20 135/98 H 95 Weight Admit Weight 165 lb 9.6 oz Weight 165 lb I&O: 07/18/19 07/19/19 07/20/19 06:59 06:59 06:59 Intake Total 1290 2400 Balance 1290 2400 Result Diagrams: 07/14/19 04:30 07/12/19 05:02 Hospitalist ROS - Medication Medications: Active Medications Generic Name Dose Route Start Last Admin Trade Name Freq PRN Reason Stop Dose Admin Acetaminophen 650 mg 07/09/19 22:35 07/10/19 05:27 Tylenol PO 650 mg Q4H PRN Administration Headache/Fever/Mild Pain (1-3) Acetaminophen/Codeine Phosphate 1 tab 07/10/19 10:05 07/11/19 20:47 Tylenol #3 PO 1 tab Q4H PRN Administration Moderate Pain (4-6) Allopurinol 300 mg 07/10/19 09:00 07/19/19 08:28 Zyloprim PO 300 mg DAILY ELLIE Administration Alprazolam 0.25 mg 07/10/19 17:58 07/17/19 02:40 Xanax PO 0.25 mg BIDPRN PRN Administration Anxiety Amlodipine Besylate 2.5 mg 07/10/19 09:00 07/19/19 08:28 Norvasc PO 2.5 mg DAILY ELLIE Administration Aspirin 81 mg 07/10/19 09:00 07/19/19 08:26 Ecotrin PO 81 mg DAILY ELLIE Administration Atenolol 25 mg 07/10/19 09:00 07/19/19 08:26 Tenormin PO 25 mg DAILY ELLIE Administration Atorvastatin Calcium 40 mg 07/10/19 09:00 07/19/19 08:26 Lipitor PO 40 mg DAILY ELLIE Administration Dexamethasone 4 mg 07/17/19 21:00 07/19/19 08:26 Decadron SLOW IVP 4 mg BID ELLIE Administration Enoxaparin Sodium 30 mg 07/10/19 09:00 07/19/19 08:24 Lovenox SC 30 mg 0900 ELLIE Administration Escitalopram Oxalate 10 mg 07/10/19 09:00 07/19/19 08:26 Lexapro PO 10 mg DAILY ELLIE Administration Famotidine 20 mg 07/14/19 21:00 07/19/19 08:26 Pepcid SLOW IVP 20 mg BID ELLIE Administration Dextrose/Sodium Chloride 1,000 mls @ 100 mls/hr 07/12/19 17:45 07/19/19 01:05 D5 0.9% Ns IV 1,000 mls .Q10H ELLIE Administration Miscellaneous Medication 200 258 mls @ 0 mls/hr 07/17/19 08:15 07/17/19 14:07 mg/ Sodium Chloride IV 258 mls WILLCALL ELLIE Administration As Directed Lisinopril 10 mg 07/10/19 09:00 07/19/19 08:26 Zestril PO 10 mg DAILY ELLIE Administration Lorazepam 1 mg 07/12/19 03:50 07/18/19 06:22 Ativan SLOW IVP 1 mg Q6H PRN Administration Anxiety/Agitation Megestrol Acetate 40 mg 07/12/19 09:00 07/19/19 08:26 Megace PO 40 mg DAILY ELLIE Administration Meloxicam 15 mg 07/13/19 09:00 07/19/19 08:26 Mobic PO 15 mg DAILY ELLIE Administration Morphine Sulfate 2 mg 07/13/19 12:30 07/19/19 08:24 Morphine SLOW IVP 2 mg Q4H ELLIE Administration Ondansetron HCl 4 mg 07/09/19 22:35 07/11/19 09:02 Zofran IVP 4 mg Q6H PRN Administration Nausea/Vomiting Quetiapine Fumarate 50 mg 07/11/19 18:45 07/18/19 18:43 Seroquel PO 50 mg 1845 ELLIE Administration - Exam General Appearance: NAD Neck: no JVD Heart: RRR Respiratory: CTAB Gastrointestinal: soft Extremities: no edema Neurological: no weakness Hosp A/P (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 - SECONDARY MALIGNANT NEOPLASM OF OTH PARTS OF NERVOUS SYSTEM; C80.1 - MALIGNANT (PRIMARY) NEOPLASM, UNSPECIFIED Status: Acute (2) Metastatic malignant melanoma Code(s): C79.9 - SECONDARY MALIGNANT NEOPLASM OF UNSPECIFIED SITE Status: Acute (3) Melanoma Code(s): C43.9 - MALIGNANT MELANOMA OF SKIN, UNSPECIFIED Status: Chronic (4) Moderate protein-calorie malnutrition Code(s): E44.0 - MODERATE PROTEIN-CALORIE MALNUTRITION Status: Chronic (5) Cholecystitis Code(s): K81.9 - CHOLECYSTITIS, UNSPECIFIED Status: Acute (6) HTN (hypertension) Code(s): I10 - ESSENTIAL (PRIMARY) HYPERTENSION Status: Chronic Qualifiers: Hypertension type: essential hypertension Qualified Code(s): I10 - Essential (primary) hypertension - Plan Seen by Oncology and palliative ... Continue current management.. Seen by palliative care. For possible SNF/hospice..
[2019-07-19] MEDS: hydrALAZINE 20 MG/ML VIAL SLOW IVP PRN (23:47)
[2019-07-20] MEDS: Morphine 2 MG/ML SYRINGE SLOW IVP SCH ×5 (04:21→20:54)
[2019-07-20] MEDS: Dextrose 5 % And 0.9 % NaCl 1,000 ML IV SCH ×3 (05:19→18:19)
[2019-07-20] MEDS: hydrALAZINE 20 MG/ML VIAL SLOW IVP PRN (06:30)
--- NOTE | 2019-07-20 08:29 | PDOC.MOPN ---
Interval History: he is still alert but confused. family reports he was much better after LP, lucid and clear for almost 24 hours - Vital Signs Vital Signs: Vital Signs (12 hours) Temp Pulse Resp BP BP Pulse Ox 07/20/19 06:30 96 184/86 H 07/20/19 06:15 97.4 F L 96 18 184/86 H 97 07/19/19 23:47 79 176/103 H 07/19/19 23:45 97.2 F L 80 16 176/103 H 97 Weight Admit Weight 165 lb 9.6 oz Weight 165 lb - Physical Exam General: Alert, Mild distress HEENT: Atraumatic Lungs: Clear to auscultation Cardiovascular: Regular rate Abdomen: Normal bowel sounds Extremities: No clubbing Skin: No rashes Neurological: Other (confused but moving all 4 extremities) Psych/Mental Status: Other (altered) - Labs Result Diagrams: 07/14/19 04:30 07/12/19 05:02 - Pathology Pathology: CSF + for melanoma A/P - Problem (1) Metastatic malignant melanoma Current Visit: Yes Code(s): C79.9 - SECONDARY MALIGNANT NEOPLASM OF UNSPECIFIED SITE Status: Acute (2) Acute metabolic encephalopathy Current Visit: Yes Code(s): G93.41 - METABOLIC ENCEPHALOPATHY Status: Acute (3) Melanoma Current Visit: Yes Code(s): C43.9 - MALIGNANT MELANOMA OF SKIN, UNSPECIFIED Status: Chronic (4) Metastatic melanoma Current Visit: Yes Code(s): C79.9 - SECONDARY MALIGNANT NEOPLASM OF UNSPECIFIED SITE Status: Acute (5) Meningeal carcinomatosis Current Visit: Yes Code(s): C79.49 - SECONDARY MALIGNANT NEOPLASM OF OTH PARTS OF NERVOUS SYSTEM; C80.1 - MALIGNANT (PRIMARY) NEOPLASM, UNSPECIFIED Status: Acute - Plan Plan: * cont keytruda q 3 w for now * we had a long discussion about prognosis. they are aware it is poor but that there is a chance the keytruda could work to improve his symptoms * consider swing bed or SNF if we decide to try to give the next keytruda dose * cont DVT prophylaxis * we had a long discussion about code status and I have recommended he be a DNR. they will talk about it as a family * we also discussed inpatient hospice unit. they are rosales of the facility and will consider this as an option * repeat LP , we will see if this improves his symptoms
[2019-07-20] MEDS: Meloxicam 15 MG TAB PO SCH (09:34)
[2019-07-20] MEDS: Dexamethasone 4 mg/ml Vial SLOW IVP SCH ×2 (09:35→20:54)
[2019-07-20] MEDS: Enoxaparin Sodium 30 MG/0.3 ML SYRINGE SC SCH (09:35)
[2019-07-20] MEDS: Aspirin 81 mg Enteric Coated Tablet PO SCH (09:35)
[2019-07-20] MEDS: Famotidine/PF 20 mg/2ml Vial SLOW IVP SCH ×2 (09:35→20:54)
[2019-07-20] MEDS: Lisinopril 10 MG TAB PO SCH (09:36)
[2019-07-20] MEDS: Allopurinol 300 MG TAB PO SCH (09:36)
[2019-07-20] MEDS: Atenolol 25 MG TAB PO SCH (09:36)
[2019-07-20] MEDS: Escitalopram Oxalate 10 mg Tablet PO SCH (09:36)
[2019-07-20] MEDS: Amlodipine 5 MG TAB PO SCH (09:36)
[2019-07-20] MEDS: Atorvastatin Calcium 40 MG TAB PO SCH (09:36)
[2019-07-20] MEDS: Megestrol Acetate 40 MG TAB PO SCH (09:39)
--- NOTE | 2019-07-20 09:55 | PDOC.PALPN ---
Palliative Progress Note - Subjective Awake, asphagic, pleasantly confused, with intermittent mild agitation. Unchanged with the exception of increasing non compliance with oral medications related to confusion and refusing to swallow. - Objective Vital Signs: Vital Signs - Most Recent Temp Pulse Resp BP Pulse Ox 97.4 F L 96 18 184/86 H 97 07/20/19 06:15 07/20/19 09:36 07/20/19 06:15 07/20/19 09:36 07/20/19 06:15 - Physical Exam Constitutional: encephalitic, mild distress HEENT: moist MMs, sclera anicteric Respiratory: no wheezing, unlabored breathing Cardiovascular: diminished peripheral pulses Gastrointestinal: non-tender, incontinent Genitourinary: incontinent Musculoskeletal: no edema Deviation from normal: cool lower extremities, mild cyanotic appearance to feet Neurology: moves all 4 limbs Deviation from normal: Moves extremtities, unable to computer forensics technician on request Skin: normal turgor - Assessment (1) Palliative care encounter Code(s): Z51.5 - ENCOUNTER FOR PALLIATIVE CARE Current Visit: Yes Status: Acute (2) Acute metabolic encephalopathy Code(s): G93.41 - METABOLIC ENCEPHALOPATHY Current Visit: Yes Status: Acute (3) Metastatic malignant melanoma Code(s): C79.9 - SECONDARY MALIGNANT NEOPLASM OF UNSPECIFIED SITE Current Visit: Yes Status: Acute (4) S/P kyphoplasty Code(s): Z98.890 - OTHER SPECIFIED POSTPROCEDURAL STATES Current Visit: Yes Status: Acute - Plan Plan: Followup family meeting after Dr Hillman met with family. Patient , Amalia, and their three children present. Reviewed plan discussed with Dr Hillman as well as possibilities of disease trajectory related to metastatic melanoma *Continue with Keytruda course *LP to assess if therapeutic response *Saturday, depending on continued trajectory, family will consider swing bed or hospice care. * has decided to make patient a DNAR, paper work completed and order placed. *Patient not swallowing medications today, will review medications and transition to IV as able. *Communicated plan with Dr Perez [60] minutes spent on this encounter with >50% of the time in counseling and coordination of care. - ROS Non Response: due to endotracheal tube, due to mental status
[2019-07-20 15:13] VITALS: BMI 23.7
--- NOTE | 2019-07-20 21:50 | PDOC.HOSPP ---
- Subjective Subjective: Non-verbal. - Objective Vital Signs & Weight: Vital Signs (12 hours) Temp Pulse Resp BP Pulse Ox 07/20/19 20:00 98.4 F 103 H 20 147/91 H 99 07/20/19 16:00 98.6 F 100 18 137/84 96 07/20/19 12:00 98.4 F 110 H 18 159/103 H 95 Weight Admit Weight 165 lb 9.6 oz Weight 165 lb 9.6 oz I&O: 07/19/19 07/20/19 07/21/19 06:59 06:59 06:59 Intake Total 2400 1320 1230 Balance 2400 1320 1230 Result Diagrams: 07/14/19 04:30 07/12/19 05:02 Hospitalist ROS - Medication Medications: Active Medications Generic Name Dose Route Start Last Admin Trade Name Freq PRN Reason Stop Dose Admin Acetaminophen 650 mg 07/09/19 22:35 07/10/19 05:27 Tylenol PO 650 mg Q4H PRN Administration Headache/Fever/Mild Pain (1-3) Allopurinol 300 mg 07/10/19 09:00 07/20/19 09:36 Zyloprim PO 300 mg DAILY ELLIE Administration Amlodipine Besylate 2.5 mg 07/10/19 09:00 07/20/19 09:36 Norvasc PO 2.5 mg DAILY ELLIE Administration Aspirin 81 mg 07/10/19 09:00 07/20/19 09:35 Ecotrin PO 81 mg DAILY ELLIE Administration Atenolol 25 mg 07/10/19 09:00 07/20/19 09:36 Tenormin PO 25 mg DAILY ELLIE Administration Atorvastatin Calcium 40 mg 07/10/19 09:00 07/20/19 09:36 Lipitor PO 40 mg DAILY ELLIE Administration Dexamethasone 4 mg 07/17/19 21:00 07/20/19 20:54 Decadron SLOW IVP 4 mg BID ELLIE Administration Enoxaparin Sodium 30 mg 07/10/19 09:00 07/20/19 09:35 Lovenox SC 30 mg 0900 ELLIE Administration Escitalopram Oxalate 10 mg 07/10/19 09:00 07/20/19 09:36 Lexapro PO 10 mg DAILY ELLIE Administration Famotidine 20 mg 07/14/19 21:00 07/20/19 20:54 Pepcid SLOW IVP 20 mg BID ELLIE Administration Hydralazine HCl 10 mg 07/09/19 22:35 07/20/19 06:30 Apresoline SLOW IVP 10 mg Q4H PRN Administration Blood Pressure Dextrose/Sodium Chloride 1,000 mls @ 100 mls/hr 07/12/19 17:45 07/20/19 18:19 D5 0.9% Ns IV 1,000 mls .Q10H ELLIE Administration Miscellaneous Medication 200 258 mls @ 0 mls/hr 07/17/19 08:15 07/17/19 14:07 mg/ Sodium Chloride IV 258 mls WILLCALL ELLIE Administration As Directed Lisinopril 10 mg 07/10/19 09:00 07/20/19 09:36 Zestril PO 10 mg DAILY ELLIE Administration Lorazepam 1 mg 07/12/19 03:50 07/18/19 06:22 Ativan SLOW IVP 1 mg Q6H PRN Administration Anxiety/Agitation Megestrol Acetate 40 mg 07/12/19 09:00 07/20/19 09:39 Megace PO 40 mg DAILY ELLIE Administration Meloxicam 15 mg 07/13/19 09:00 07/20/19 09:34 Mobic PO 15 mg DAILY ELLIE Administration Morphine Sulfate 2 mg 07/13/19 12:30 07/20/19 20:54 Morphine SLOW IVP 2 mg Q4H ELLIE Administration Ondansetron HCl 4 mg 07/09/19 22:35 07/11/19 09:02 Zofran IVP 4 mg Q6H PRN Administration Nausea/Vomiting Quetiapine Fumarate 50 mg 07/11/19 18:45 07/20/19 18:19 Seroquel PO Not Given [facility] - Exam General Appearance: NAD, awake alert Heart: RRR, no murmur, no gallops, no rubs, normal peripheral pulses Respiratory: CTAB, no wheezes, no rales, no ronchi, normal chest expansion, no tachypnea, normal percussion Gastrointestinal: soft, non-tender, non-distended, normal bowel sounds, no palpable masses, no hepatomegaly, no splenomegaly, no bruit Skin: normal turgor, no lesions, no rashes Hosp A/P (1) Acute metabolic encephalopathy Code(s): G93.41 - METABOLIC ENCEPHALOPATHY Status: Acute (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 - SECONDARY MALIGNANT NEOPLASM OF OTH PARTS OF NERVOUS SYSTEM; C80.1 - MALIGNANT (PRIMARY) NEOPLASM, UNSPECIFIED Status: Acute (3) Metastatic malignant melanoma Code(s): C79.9 - SECONDARY MALIGNANT NEOPLASM OF UNSPECIFIED SITE Status: Acute (4) HLD (hyperlipidemia) Code(s): E78.5 - HYPERLIPIDEMIA, UNSPECIFIED Status: Chronic (5) HTN (hypertension) Code(s): I10 - ESSENTIAL (PRIMARY) HYPERTENSION Status: Chronic Qualifiers: Hypertension type: essential hypertension Qualified Code(s): I10 - Essential (primary) hypertension (6) Cholecystitis Code(s): K81.9 - CHOLECYSTITIS, UNSPECIFIED Status: Acute - Plan Discussed with PCT. Patient had some apparent improvement with LP. Plan is for repeat on and then discharge to hospice or snf.
[2019-07-21] MEDS: Morphine 2 MG/ML SYRINGE SLOW IVP SCH ×6 (00:19→20:44)
[2019-07-21] MEDS: Dextrose 5 % And 0.9 % NaCl 1,000 ML IV SCH (05:10)
[2019-07-21] MEDS: Lisinopril 10 MG TAB PO SCH ×2 (08:16→08:30)
[2019-07-21] MEDS: Escitalopram Oxalate 10 mg Tablet PO SCH ×2 (08:16→08:30)
[2019-07-21] MEDS: Dexamethasone 4 mg/ml Vial SLOW IVP SCH ×3 (08:16→20:39)
[2019-07-21] MEDS: Allopurinol 300 MG TAB PO SCH ×2 (08:16→08:30)
[2019-07-21] MEDS: Atorvastatin Calcium 40 MG TAB PO SCH ×2 (08:16→08:30)
[2019-07-21] MEDS: Aspirin 81 mg Enteric Coated Tablet PO SCH ×2 (08:16→08:30)
[2019-07-21] MEDS: Atenolol 25 MG TAB PO SCH ×2 (08:16→08:30)
[2019-07-21] MEDS: Meloxicam 15 MG TAB PO SCH ×2 (08:16→08:30)
[2019-07-21] MEDS: Famotidine/PF 20 mg/2ml Vial SLOW IVP SCH ×2 (08:16→20:37)
[2019-07-21] MEDS: Enoxaparin Sodium 30 MG/0.3 ML SYRINGE SC SCH (08:17)
[2019-07-21] MEDS: Amlodipine 5 MG TAB PO SCH ×2 (08:17→08:30)
[2019-07-21] MEDS: Megestrol Acetate 40 MG TAB PO SCH ×2 (08:17→08:30)
--- NOTE | 2019-07-21 08:44 | PDOC.HOSPP ---
- Subjective Encounter Date: 07/21/19 Encounter Time: 08:42 non-verbal - Objective Vital Signs & Weight: Vital Signs (12 hours) Temp Pulse Resp BP BP Pulse Ox 07/21/19 08:17 106 H 07/21/19 08:16 106 H 184/86 H 07/21/19 07:23 97.9 F 106 H 20 157/98 H 96 07/21/19 04:00 98.0 F 100 18 170/94 H 95 07/21/19 00:00 98.0 F 98 17 123/93 H 94 L 07/20/19 22:51 99 Weight Admit Weight 165 lb 9.6 oz Weight 165 lb 9.6 oz I&O: 07/20/19 07/21/19 07/22/19 06:59 06:59 06:59 Intake Total 1320 2430 Balance 1320 2430 Result Diagrams: 07/14/19 04:30 07/12/19 05:02 Hospitalist ROS - Medication Medications: Active Medications Generic Name Dose Route Start Last Admin Trade Name Freq PRN Reason Stop Dose Admin Acetaminophen 650 mg 07/09/19 22:35 07/10/19 05:27 Tylenol PO 650 mg Q4H PRN Administration Headache/Fever/Mild Pain (1-3) Allopurinol 300 mg 07/10/19 09:00 07/21/19 08:16 Zyloprim PO 300 mg DAILY ELLIE Administration Amlodipine Besylate 2.5 mg 07/10/19 09:00 07/21/19 08:17 Norvasc PO 2.5 mg DAILY ELLIE Administration Aspirin 81 mg 07/10/19 09:00 07/21/19 08:16 Ecotrin PO 81 mg DAILY ELLIE Administration Atenolol 25 mg 07/10/19 09:00 07/21/19 08:16 Tenormin PO 25 mg DAILY ELLIE Administration Atorvastatin Calcium 40 mg 07/10/19 09:00 07/21/19 08:16 Lipitor PO 40 mg DAILY ELLIE Administration Dexamethasone 4 mg 07/17/19 21:00 07/21/19 08:16 Decadron SLOW IVP 4 mg BID ELLIE Administration Enoxaparin Sodium 30 mg 07/10/19 09:00 07/21/19 08:17 Lovenox SC 30 mg 0900 ELLIE Administration Escitalopram Oxalate 10 mg 07/10/19 09:00 07/21/19 08:16 Lexapro PO 10 mg DAILY ELLIE Administration Famotidine 20 mg 07/14/19 21:00 07/21/19 08:16 Pepcid SLOW IVP 20 mg BID ELLIE Administration Hydralazine HCl 10 mg 07/09/19 22:35 07/20/19 06:30 Apresoline SLOW IVP 10 mg Q4H PRN Administration Blood Pressure Dextrose/Sodium Chloride 1,000 mls @ 100 mls/hr 07/12/19 17:45 07/21/19 05:10 D5 0.9% Ns IV 1,000 mls .Q10H ELLIE Administration Miscellaneous Medication 200 258 mls @ 0 mls/hr 07/17/19 08:15 07/17/19 14:07 mg/ Sodium Chloride IV 258 mls WILLCALL ELLIE Administration As Directed Lisinopril 10 mg 07/10/19 09:00 07/21/19 08:16 Zestril PO 10 mg DAILY ELLIE Administration Lorazepam 1 mg 07/12/19 03:50 07/18/19 06:22 Ativan SLOW IVP 1 mg Q6H PRN Administration Anxiety/Agitation Megestrol Acetate 40 mg 07/12/19 09:00 07/21/19 08:17 Megace PO 40 mg DAILY ELLIE Administration Meloxicam 15 mg 07/13/19 09:00 07/21/19 08:16 Mobic PO 15 mg DAILY ELLIE Administration Morphine Sulfate 2 mg 07/13/19 12:30 07/21/19 08:27 Morphine SLOW IVP 2 mg Q4H ELLIE Administration Ondansetron HCl 4 mg 07/09/19 22:35 07/11/19 09:02 Zofran IVP 4 mg Q6H PRN Administration Nausea/Vomiting Quetiapine Fumarate 50 mg 07/11/19 18:45 07/20/19 18:19 Seroquel PO Not Given 184 ELLIE - Exam General Appearance: NAD Heart: RRR, no murmur, no gallops, no rubs, normal peripheral pulses Respiratory: CTAB, no wheezes, no rales, no ronchi, normal chest expansion, no tachypnea, normal percussion Gastrointestinal: soft, non-distended, normal bowel sounds, no palpable masses, no hepatomegaly, no splenomegaly, no bruit Extremities: no cyanosis, no clubbing, no edema Skin: normal turgor Psychiatric: somnolent Hosp A/P (1) Acute metabolic encephalopathy Code(s): G93.41 - METABOLIC ENCEPHALOPATHY Status: Acute (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 - SECONDARY MALIGNANT NEOPLASM OF OTH PARTS OF NERVOUS SYSTEM; C80.1 - MALIGNANT (PRIMARY) NEOPLASM, UNSPECIFIED Status: Acute (3) Metastatic malignant melanoma Code(s): C79.9 - SECONDARY MALIGNANT NEOPLASM OF UNSPECIFIED SITE Status: Acute (4) HLD (hyperlipidemia) Code(s): E78.5 - HYPERLIPIDEMIA, UNSPECIFIED Status: Chronic (5) HTN (hypertension) Code(s): I10 - ESSENTIAL (PRIMARY) HYPERTENSION Status: Chronic Qualifiers: Hypertension type: essential hypertension Qualified Code(s): I10 - Essential (primary) hypertension (6) Cholecystitis Code(s): K81.9 - CHOLECYSTITIS, UNSPECIFIED Status: Acute - Plan Patient had some apparent improvement with prior LP. Plan is for repeat on and then discharge to hospice or snf depending on the results. Oncology following. PCT following. Pain management. DVT prophylaxis. Continue home meds as tolerated. Swallow is an issue.
[2019-07-21] MEDS: hydrALAZINE 20 MG/ML VIAL SLOW IVP PRN ×2 (11:26→19:36)
--- NOTE | 2019-07-21 13:02 | PDOC.MOPN ---
Interval History: less agitated and responsive today. - Vital Signs Vital Signs: Vital Signs (12 hours) Temp Pulse Resp BP BP Pulse Ox 07/21/19 11:30 97.7 F 110 H 20 176/113 H 95 07/21/19 11:26 110 H 176/113 H 07/21/19 08:30 110 H 176/113 H 07/21/19 08:00 96 07/21/19 07:23 97.9 F 106 H 20 157/98 H 96 07/21/19 04:00 98.0 F 100 18 170/94 H 95 Weight Admit Weight 165 lb 9.6 oz Weight 165 lb 9.6 oz - Physical Exam General: No acute distress HEENT: Atraumatic, PERRLA, EOMI, Mucous membr. moist/pink Lungs: Clear to auscultation, Normal air movement Cardiovascular: Other (4/6 murmur) Abdomen: Normal bowel sounds, Soft, No tenderness, No hepatospenomegaly, No masses Extremities: No clubbing, No cyanosis, No edema, Normal pulses, No tenderness/ swelling Skin: No rashes, No breakdown, No significant lesion Neurological: Other (somnolent, sedated with morphine) - Labs Result Diagrams: 07/14/19 04:30 07/12/19 05:02 Status: lab reviewed by me A/P - Problem (1) Metastatic malignant melanoma Current Visit: Yes Code(s): C79.9 - SECONDARY MALIGNANT NEOPLASM OF UNSPECIFIED SITE Status: Acute - Plan Plan: Continue comfort measures today IVF for hydration If no improvement in next day or so, inpatient hospice likely option discussed with Dr. Hillman.
[2019-07-21] MEDS: Lorazepam 2 MG/ML VIAL SLOW IVP PRN (19:41)
[2019-07-22] MEDS: Morphine 2 MG/ML SYRINGE SLOW IVP SCH ×3 (00:14→09:21)
[2019-07-22] MEDS: Dextrose 5 % And 0.9 % NaCl 1,000 ML IV SCH ×2 (00:20→10:34)
[2019-07-22] MEDS: Enoxaparin Sodium 30 MG/0.3 ML SYRINGE SC SCH (09:24)
[2019-07-22] MEDS: Famotidine/PF 20 mg/2ml Vial SLOW IVP SCH (09:24)
[2019-07-22] MEDS: Dexamethasone 4 mg/ml Vial SLOW IVP SCH (09:25)
[2019-07-22] MEDS ORDERED: Lorazepam 2 MG/ML VIAL SLOW IVP PRN ×2 (10:15→11:01)
[2019-07-22] MEDS: Allopurinol 300 MG TAB PO SCH (10:38)
[2019-07-22] MEDS: Amlodipine 5 MG TAB PO SCH (10:38)
[2019-07-22] MEDS: Megestrol Acetate 40 MG TAB PO SCH (10:39)
[2019-07-22] MEDS: Escitalopram Oxalate 10 mg Tablet PO SCH (10:39)
[2019-07-22] MEDS: Atenolol 25 MG TAB PO SCH (10:39)
[2019-07-22] MEDS: Atorvastatin Calcium 40 MG TAB PO SCH (10:39)
[2019-07-22] MEDS: Aspirin 81 mg Enteric Coated Tablet PO SCH (10:39)
[2019-07-22] MEDS: Lisinopril 10 MG TAB PO SCH (10:39)
[2019-07-22] MEDS: Meloxicam 15 MG TAB PO SCH (10:40)
[2019-07-22] MEDS ORDERED: Morphine 2 MG/ML SYRINGE SLOW IVP PRN (11:01)
[2019-07-22 11:56] VITALS: BP 145/77; TEMP 98.4
[2019-07-22] MEDS: Morphine 4 MG/ML VIAL SLOW IVP PRN ×2 (13:05→15:02)
--- NOTE | 2019-07-22 16:45 | PDOC.MOPN ---
Interval History: obtunded - Vital Signs Vital Signs: Vital Signs (12 hours) Temp Pulse Resp BP BP Pulse Ox 07/22/19 11:54 98.4 F 110 H 24 H 145/77 H 94 L 07/22/19 10:39 112 H 171/134 H 07/22/19 10:38 112 H 07/22/19 08:34 98.9 F 112 H 24 H 152/85 H 94 L 07/22/19 08:00 94 L Weight Admit Weight 165 lb 9.6 oz Weight 165 lb 9.6 oz - Physical Exam General: Other HEENT: Atraumatic, PERRLA, EOMI, Mucous membr. moist/pink Cardiovascular: Regular rate, Normal S1, Normal S2, No murmurs, Gallops, Rubs Extremities: No clubbing, No cyanosis, No edema, Normal pulses, No tenderness/ swelling Neurological: Other - Labs Result Diagrams: 07/14/19 04:30 07/12/19 05:02 Status: lab reviewed by me A/P - Problem (1) Metastatic malignant melanoma Current Visit: Yes Code(s): C79.9 - SECONDARY MALIGNANT NEOPLASM OF UNSPECIFIED SITE Status: Acute - Plan Plan: Patient and family agree to hospice. Inpatient referral to [facility] Adjust morphine for labored breathing. discussed with Dr. Hillman.
== END 2019-07-22 16:57 | disposition hospice, inpatient (51) | DRG 54 ==
LOC: ERS 18:59 → 2SE 22:38 → ONC 07-17 09:21 → T4-A 07-20 22:50 → ONC 07-21 17:51
PROVIDERS: ADMIT Internal Medicine; ATTEND Internal Medicine
PROC: 009U3ZX Drainage of Spinal Canal, Percutaneous Approach, Diagnostic (ICD-10-PCS; principal; 2019-07-14)
PROC: B01B1ZZ Fluoroscopy of Spinal Cord using Low Osmolar Contrast (ICD-10-PCS; 2019-07-14)
PROC: 0DH67UZ Insertion of Feeding Device into Stomach, Via Natural or Artificial Opening (ICD-10-PCS; 2019-07-14)
DX: C79.49 Secondary malignant neoplasm of other parts of nervous system (principal); G92 Toxic encephalopathy; C79.51 Secondary malignant neoplasm of bone; N39.0 Urinary tract infection, site not specified; E44.0 Moderate protein-calorie malnutrition; Z51.5 Encounter for palliative care; Z66 Do not resuscitate; C43.9 Malignant melanoma of skin, unspecified; I10 Essential (primary) hypertension; I25.10 Atherosclerotic heart disease of native coronary artery without angina pectoris; Z95.1 Presence of aortocoronary bypass graft; Z91.048 Other nonmedicinal substance allergy status; Z68.23 Body mass index [BMI] 23.0-23.9, adult; I25.2 Old myocardial infarction; K81.9 Cholecystitis, unspecified; E16.2 Hypoglycemia, unspecified; E78.5 Hyperlipidemia, unspecified; E78.00 Pure hypercholesterolemia, unspecified; R40.2362 Coma scale, best motor response, obeys commands, at arrival to emergency department; R40.2142 Coma scale, eyes open, spontaneous, at arrival to emergency department; R40.2242 Coma scale, best verbal response, confused conversation, at arrival to emergency department
CPT/HCPCS: 36415; 44500; 51701; 62270; 70450; 70553; 71045; 72156; 72157; 72158; 74340; 80048; 80053; 80306; 80307; 81003; 81015; 82553; 82945; 83690; 84157; 84484; 85007; 85025; 85027; 85060; 86612; 86635; 86698; 87040; 87086; 88112; 89051; 93005; 96361; 96365; 96367; 96375; J0360; J0696; J1100; J1650; J1956; J2001; J2060; J2175; J2250; J2270; J2405; J2704; J3370; J3486; J3490; J7042; J7050; J9271; S0028; S0179